=== PATIENT | female | born 1935 | race Caucasian/White ===

== ENCOUNTER 2017-06-04 19:36 | Emergency (ER) | payer BC, MEDICARE ==
[2017-06-04 20:01] VITALS: BP 112/66
--- NOTE | 2017-06-04 21:00 | UC ---
General HPI - HPI Summary HPI Summary: WAS IN NORMAL STATE OF HEALTH TODAY WHEN SHE SUDDENLY FELT WEAK AND SHAKEY. HAD SUBJECTIVE FEVER. NO SOB, CP, SLURRED SPEECH OR CONFUSION. ADMITS TO NOT DRINKING MUCH TODAY. HAS ONLY VOIDED ONCE. DENIES ANY DYSURIA. NO BACK PAIN. - History of Current Complaint Chief Complaint: UCGU Stated Complaint: DIZZY Time Seen by Provider: 06/04/17 20:49 Hx Obtained From: Patient, Family/Juice Weigher - SON AND DAUGHTER Onset/Duration: Sudden Onset, Lasting Hours, Still Present Timing: Constant Onset Severity: Moderate Current Severity: Moderate Associated Signs & Symptoms: Positive: Fever, Weakness. Negative: Back Pain, Confusion, Chest Pain, Decreased Responsiveness, Dysuria, Diaphoresis, Nausea, Palpitations, Syncope, SOB, Vomiting - Allergy/Home Medications Allergies/Adverse Reactions: Allergies Allergy/AdvReac Type Severity Reaction Status Date / Time Oxycodone Allergy Vomiting Verified 06/04/17 19:45 Penicillins [PCN] Allergy Hives Verified 06/04/17 19:45 PMH/Surg Hx/FS Hx/Imm Hx Previously Healthy: Yes - Surgical History Surgical History: Yes Surgery Procedure, Year, and Place: small intestine blockage - Family History Known Family History: Negative: Hypertension - Social History Alcohol Use: Occasionally Substance Use Type: None Smoking Status (MU): Former Smoker Type: Cigarettes Have You Smoked in the Last Year: No When Did the Patient Quit Smoking/Using Tobacco: 1 year ago Review of Systems Constitutional: Fever Respiratory: Negative Cardiovascular: Negative Gastrointestinal: Negative Neurological: Weakness All Other Systems Reviewed And Are Negative: Yes Physical Exam Triage Information Reviewed: Yes Appearance: Well-Appearing, No Pain Distress, Well-Nourished Vital Signs: Initial Vital Signs Temp 102.3 F 06/04/17 19:47 Pulse 103 06/04/17 19:47 Resp 20 06/04/17 19:47 BP 112/66 06/04/17 19:47 Pulse Ox 97 06/04/17 19:47 Vital Signs Reviewed: Yes Eyes: Positive: Conjunctiva Clear ENT: Positive: Hearing grossly normal Neck: Positive: Supple Respiratory Exam: Normal Cardiovascular Exam: Normal Abdomen Description: Positive: Nontender, Soft. Negative: CVA Tenderness (R), CVA Tenderness (L), Distended, Guarding Musculoskeletal: Positive: No Edema Neurological: Positive: Alert Psychological: Positive: Normal Response To Family, Age Appropriate Behavior Skin: Negative: rashes Diagnostics - Laboratory Diagnostic Studies Completed/Ordered: URINE DIP SP GR. 1.020, 1+ LEUKS, 2+ PROTEIN, TRACE BLOOD, 1+ KETONES, 1+ BILI Course/Dx - Differential Dx - Multi-Symptom Provider Diagnoses: UTI Discharge - Discharge Plan Condition: Stable Disposition: HOME Prescriptions: Sulfamethox/Trimethoprim DS* [Bactrim DS 800/160 TAB*] 1 tab PO BID #9 tab Patient Education Materials: Urinary Tract Infection in Women (ED) Referrals: Sasha De La Vega MD [Primary Care Provider] - If Needed Additional Instructions: URINE DIP POSITIVE FOR UTI. WE WILL SEND YOUR URINE FOR CULTURE TO CONFIRM AND CALL YOU IF WE NEED TO ALTER YOUR MANAGEMENT. STAY WELL HYDRATED. IF YOUR FEVER HAS NOT RESOLVED IN 2 DAYS FOLLOW-UP WITH YOUR PCP OR GO TO THE ER.
[2017-06-04] MEDS ORDERED: Sulfamethox/Trimethoprim DS 800/160* TAB PO ONE (21:01)
== END 2017-06-04 21:15 | disposition home or self-care (01) ==
LOC: UCEAST 19:36
DX: N39.0 Urinary tract infection, site not specified (principal); R50.9 Fever, unspecified; R53.1 Weakness; Z88.5 Allergy status to narcotic agent; Z88.0 Allergy status to penicillin; Z87.891 Personal history of nicotine dependence
CPT/HCPCS: 87086; 99212; A9270-GY; G0463

== ENCOUNTER 2017-08-01 16:12 | Emergency (ER) | payer MEDICARE ==
[2017-08-01 16:25] VITALS: BP 130/78
--- NOTE | 2017-08-01 17:45 | RAD ---
INDICATION: Left shoulder pain after a fall. Seizure x2. COMPARISON: None. TECHNIQUE: 2 views of the left shoulder and 3 views of the left humerus were obtained. FINDINGS: There is a displaced fracture at the left surgical neck of the humerus with the humeral shaft displaced at least one bone width medial relative to the humeral head. The remaining bones are otherwise intact and appropriately aligned. IMPRESSION: DISPLACED FRACTURE THROUGH THE LEFT HUMERAL SURGICAL NECK WITH THE HUMERAL SHAFT DISPLACED MEDIALLY AT LEAST ONE BONE WIDTH RELATIVE TO THE HUMERAL HEAD WHICH OTHERWISE APPEARS TO BE APPROPRIATELY ARTICULATED WITH THE BONY GLENOID LABRUM.
[2017-08-01] MEDS ORDERED: HYDROcodone/ACETAMIN 5-325 MG* 1 TAB PO ONE (17:56)
[2017-08-01] MEDS ORDERED: HYDROcodone/ACETAMIN 5-325 MG* 1 TAB ONE (18:00)
[2017-08-01] MEDS ORDERED: Tetan/Diph/Pertus SYR(Tdap)* 0.5 ML SYR(BOOSTRIX) use SYR IM ONE (18:07)
--- NOTE | 2017-08-01 18:25 | RAD ---
indication: Seizure x2 followed by head trauma. There is a hematoma above the left eye. COMPARISON: None A CT scan of the brain and and maxillofacial bones was performed without intravenous contrast enhancement. Contiguous axial sections were obtained from the lower cervical spine through the cranial vertex. BRAIN: The ventricles, cisterns and sulci exhibit diffuse symmetrical involutional changes. No significant focal abnormality or mass effect is seen. There is mild to moderate periventricular and subcortical white matter hypoattenuation most consistent with chronic microvascular disease. The mars-white differentiation is adequately maintained. There is no evidence for intracranial hemorrhage. No significant bony abnormality is present. The mastoid air cells are appropriately aerated. The visualized paranasal sinuses are clear. FACIAL BONES: Bones: There is no displaced fracture or dislocation. The orbital rim is intact. The zygomatic arch is intact. The pterygoid plates are intact Orbits: The globes are round. The optic nerves are symmetric. The extraocular musculature is normal. There is no post septal or intraconal inflammatory change. There is no retrobulbar hematoma. Paranasal Sinuses: The paranasal sinuses are clear. Partially visualized are multilevel degenerative changes of the cervical spine including obliteration of the intervertebral disc space at C3/C4 as well as marginal osteophyte formation. IMPRESSION: 1. Age-appropriate chronic findings include involutional changes and microvascular disease without acute intracranial abnormality. 2. No traumatic fractures of the calvarium or the facial bones.
--- NOTE | 2017-08-01 18:55 | ED ---
Jas Abdalla Angela, scribed for Wali Rowley MD on 08/01/17 at 1635 . Upper Extremity Pain - HPI Summary HPI Summary: This pt is a 82 y/o [facility]/o left shoulder pain s/p fall today. Pt reports she was going down the stairs with slippers when she slipped and fell down 4 steps. Pt states she had a head strike against the wall and fell on her left shoulder. Pt denies LOC or syncope. Her shoulder pain is aggravated by movement. Pt denies back pain, knee pain, abd pain, neck pain. Pt is unsure of her last tetanus shot. She is not on any anticoagulants. - History of Current Complaint Chief Complaint: EDShoulderClavicNneka Stated Complaint: LT SHOULDER INJURY Time Seen by Provider: 08/01/17 16:29 Hx Obtained From: Patient Mechanism Of Injury: Fall From Height Of: - 4 steps Onset/Duration: Started Hours Ago, Still Present Timing: Lasting Hours Pain Location: Shoulder - left shoulder Character: Aching Aggravating Factor(s): Movement Associated Signs & Symptoms: Positive: Swelling. Negative: Weakness, Numbness/ Tingling, Chest Pain, Back Pain, Neck Pain, Nausea, Vomiting - Allergies/Home Medications Allergies/Adverse Reactions: Allergies Allergy/AdvReac Type Severity Reaction Status Date / Time Oxycodone Allergy Vomiting Verified 06/04/17 19:45 Penicillins [PCN] Allergy Hives Verified 06/04/17 19:45 PMH/Surg Hx/FS Hx/Imm Hx Endocrine/Hematology History: Denies: Hx Diabetes, Hx Systemic Lupus Erythematosus Cardiovascular History: Denies: Hx Congestive Heart Failure, Hx Hypertension History: Denies: Hx Dialysis, Hx Renal Disease Musculoskeletal History: Denies: Hx Rheumatoid Arthritis - Cancer History Hx Chemotherapy: No - Surgical History Surgery Procedure, Year, and Place: small intestine blockage Infectious Disease History: No Infectious Disease History: Denies: Traveled Outside the [place] in Last 30 Days - Family History Known Family History: Negative: Hypertension - Social History Alcohol Use: Occasionally Substance Use Type: Reports: None Smoking Status (MU): Former Smoker Type: Cigarettes Have You Smoked in the Last Year: No Review of Systems Negative: Fever, Chills Negative: Chest Pain Negative: Shortness Of Breath Negative: Abdominal Pain Positive: Decreased ROM - left shoulder, Other - left shoulder pain Negative: Weakness, Paresthesia, Numbness All Other Systems Reviewed And Are Negative: Yes Physical Exam - Summary Physical Exam Summary: VITAL SIGNS: Reviewed. GENERAL: Patient is a well-developed and nourished female who is lying comfortable in the stretcher. Patient is not in any acute respiratory distress. HEAD AND FACE: No ecchymosis, skull depressions. No sinus tenderness. There is a small nasim on the left eyebrow. EYES: PERRLA, EOMI x 2, No injected conjunctiva, no nystagmus. EARS: Hearing grossly intact. Ear canals and tympanic membranes are within normal limits. MOUTH: Oropharynx within normal limits. NECK: Supple, trachea is midline, no adenopathy, no JVD, no carotid bruit, no c- spine tenderness, neck with full ROM. CHEST: Symmetric, no tenderness at palpation LUNGS: Clear to auscultation bilaterally. No wheezing or crackles. CVS: Regular rate and rhythm, S1 and S2 present, no murmurs or gallops appreciated. ABDOMEN: Soft, non-tender. No signs of distention. No rebound no guarding, and no masses palpated. Bowel sounds are normal. EXTREMITIES: No cyanosis or clubbing. The left shoulder is swollen, deformed. There is good microwave engineer on bilateral upper extremities. There is good pulses and capillary refill. NEURO: Alert and oriented x 3. No acute neurological deficits. Speech is normal and follows commands. SKIN: Dry and warm GCS: 15 Triage Information Reviewed: Yes Vital Signs On Initial Exam: Initial Vitals BP 130/78 08/01/17 16:18 Temperature: 97.5 Pulse Rate: 87 Respiratory rate: 20 O2 saturation: 97 Vital Signs Reviewed: Yes - Eve Coma Scale Coma Scale Total: 15 Diagnostics - Vital Signs Vital Signs Temp Pulse Resp BP Pulse Ox 08/01/17 16:20 97.5 F 81 20 130/78 94 08/01/17 16:18 130/78 - Laboratory Lab Statement: Any lab studies that have been ordered have been reviewed, and results considered in the medical decision making process. - Radiology Left humerus XR Xray Interpretation: Positive (See Comments) - IMPRESSION: Displaced fracture through the left humeral surgical neck with the humeral shaft displaced medially at least one bone width relative to the humeral head which otherwise appears to be appropriately articulated with the bony glenoid labrum.ED physician has reviewed this radiology report and agrees. Radiology Interpretation Completed By: Radiologist Left shoulder XR Xray Interpretation: Positive (See Comments) - IMPRESSION: Displaced fracture through the left humeral surgical neck with the humeral shaft displaced medially at least one bone width relative to the humeral head which otherwise appears to be appropriately articulated with the bony glenoid labrum.ED physician has reviewed this radiology report and agrees. Radiology Interpretation Completed By: Radiologist - CT Brain CT CT Interpretation: No Acute Changes - IMPRESSION: 1. Age-appropriate chronic findings include involutional changes and microvascular disease without acute intracranial abnormality. 2. No traumatic fractures of the calvarium or the facial bones. ED physician has reviewed this radiology report and agrees. CT Interpretation Completed By: Radiologist Maxillofacial CT CT Interpretation: No Acute Changes - IMPRESSION: 1. Age-appropriate chronic findings include involutional changes and microvascular disease without acute intracranial abnormality. 2. No traumatic fractures of the calvarium or the facial bones. ED physician has reviewed this radiology report and agrees. CT Interpretation Completed By: Radiologist - EKG 1728 Cardiac Rate: NL - 70 bpm EKG Rhythm: Sinus Rhythm ST Segment: Normal EKG Interpretation: Normal axis. No ST elevation. Re-Evaluation - Re-Evaluation First Eval Re-Evaluation Time: 17:43 Comment: I reviewed the XR results with the pt. Course/Dx - Course Assessment/Plan: This pt is a 82 y/o female [facility] [place]/o left shoulder pain s/p fall today. Pt reports she was going down the stairs with slippers when she slipped and fell down 4 steps. Pt states she had a head strike against the wall and fell on her left shoulder. Pt denies LOC or syncope. Her shoulder pain is aggravated by movement. Pt denies back pain, knee pain, abd pain, neck pain. Pt is unsure of her last tetanus shot. She is not on any anticoagulants. XR of the shoulder shows a displaced fracture of the left humeral surgical neck with the humeral shaft displaced. Head CT and face CT are both negative for fractures. In the ED course, the pt was given a norco for the pain. The pt initially declined pain medication but now she only wants norco. I discussed the test result and findings with Dr. Quiles. She actually saw the X-rays and requested for the pt to be discharged home and follow up with her in her office on Friday. Dr. Quiles requested a shoulder sling and pain management for the pt. I discussed the results, findings and plan to the pt and family members. At this point, the pt is hemodynamically stable and will follow up with Dr. Quiles on Friday in her office. - Diagnoses Differential Diagnosis/HQI/PQRI: Positive: Burn, Bursitis, Contusion, Fracture ( Closed), Hematoma, Strain, Sprain Provider Diagnoses: Fracture of neck of left humerus, Head contusion - Physician Notifications Discussed Care of Patient With: Moon Quiles Time Discussed With Above Provider: 17:19 Instructed by Provider To: Other - I discussed the pt's case with Dr. Quiles. Pt recommends the pt to be discharged and Dr. Quiles will see the pt in her office on Friday. Discharge - Discharge Plan Condition: Stable Disposition: HOME Prescriptions: HYDROcodone/ACETAMIN 5-325 MG* [Harriet 5-325 TAB*] 1 tab PO Q4H PRN #12 tab MDD 4 PRN Reason: Pain Patient Education Materials: Contusion in Adults (ED), Proximal Humerus Fracture (ED) Referrals: Sasha De La Vega MD [Primary Care Provider] - Moon Quiles MD [Medical Doctor] - 3 Days Additional Instructions: Please follow up with Dr. Quiles from orthopedics in her office on Friday, . The documentation as recorded by the Jas negrete Angela accurately reflects the service I personally performed and the decisions made by , Wali Rowley MD.
== END 2017-08-01 19:10 | disposition home or self-care (01) ==
LOC: ED 16:12
DX: S00.93XA Contusion of unspecified part of head, initial encounter (principal); W10.9XXA Fall (on) (from) unspecified stairs and steps, initial encounter; Y93.9 Activity, unspecified; Y92.9 Unspecified place or not applicable; Z23 Encounter for immunization; Z88.5 Allergy status to narcotic agent; Z88.0 Allergy status to penicillin; Z87.891 Personal history of nicotine dependence
CPT/HCPCS: 70450; 70486; 90471; 90715; 93005; 99284

== ENCOUNTER 2017-08-15 10:23 | Inpatient (IN) | payer MEDICARE ==
--- NOTE | 2017-08-06 17:06 | HP ---
PREOPERATIVE HISTORY AND PHYSICAL: DATE OF ADMISSION/SURGERY: 08/08/17 DATE OF OFFICE VISIT: 08/05/17 ATTENDING SURGEON: Dr. Moon Quiles* (dictated by ROCKY Valenzuela). PROCEDURE: Left proximal humerus open reduction internal fixation. CHIEF COMPLAINT: Left proximal humerus fracture. HISTORY OF PRESENT ILLNESS: Ann Marie is an 82-year-old female, who presents to clinic for left proximal humerus fracture, she is right-hand dominant. The patient states on 08/01/17, she fell down 4 steps and hit her left shoulder off the wall. She had immediate pain and was taken to the ER, and x-rays were performed and revealed a left proximal humerus fracture. The patient states she continues to have a 5/10 aching pain that is worse with movement. She is taking Aleve as needed for the pain. She lives by herself and usually drives. She is a former smoker, who quit about 3 years ago. She denies numbness, tingling, fevers, chills, and is doing well otherwise. PAST MEDICAL HISTORY: No current problems. PAST SURGICAL HISTORY: Bowel obstruction and left hip replacement. FAMILY HISTORY: Positive for diabetes, heart disease, and cancer. SOCIAL HISTORY: She lives alone. She is retired. She is a former smoker. She denies alcohol use. She exercises regularly. She is right-hand dominant. REVIEW OF SYSTEMS: A 14-point review of systems was reviewed with the patient. Positive for current complaint, otherwise negative. Denies chest pain, shortness of breath. Denies fever or chills. Denies history of bleeding disorders. Denies history of DVT or PE. PHYSICAL EXAMINATION GENERAL: An 82-year-old, well-developed, well-nourished female, in no acute distress. Alert and oriented x3. Appropriate mood and affect. VITAL SIGNS: Height 62, weight 112. Pulse 81, blood pressure 108/62, temperature 98.2. BMI 20.5. HEENT: Normocephalic, atraumatic. PERRLA. Throat clear. NECK: Supple. PULMONARY: Lungs are clear to auscultation bilaterally. No wheezing, rhonchi, or rales. CARDIO: Regular rate and rhythm. S1 and S2. No murmurs, gallops, or rubs. No edema. ABDOMEN: Positive bowel sounds. Soft, nontender. MUSCULOSKELETAL: Left upper extremity: There is significant bruising and swelling over the left shoulder and upper arm. Tenderness to palpation over the proximal humerus. Full range of motion of the elbow, wrist, and hand. She does have clubbing of her fingers; however, she has good cap refill. +2 radial pulse. Sensation is intact to light touch distally. Right upper extremity: Skin is intact, no warmth or erythema. Nontender to palpation. Full range of motion, pain free. +2 radial pulse. Sensation is intact to light touch distally. NEURO: Alert and oriented x3. Cranial nerves grossly intact. Sensation is intact to light touch. DIAGNOSTIC STUDIES: Multiple view x-rays of the left shoulder reveal a comminuted 100% displaced proximal humerus fracture and osteopenia. IMPRESSION: Left comminuted displaced proximal humerus fracture. PLAN: The patient is scheduled to undergo a left proximal humerus open reduction internal fixation on 08/08/17. Since the patient lives alone and would like full function of her left arm, surgical versus non-operative treatments were discussed with the patient and the risks of surgery to include injury to blood vessels, nerves, surrounding structures; bleeding; infection; osteonecrosis; risk of anesthesia; stiffness; persistent pain were discussed with the patient. The patient would like to undergo surgery. She was sent for a preop chest x-ray and labs and Dr. De La Vega will be contacted in regards to preoperative clearance. The patient will follow up with Dr. Quiles 10 to 14 days postop for followup and suture removal. Percocet will be used for postop pain. ADDENDUM: The patient's preoperative chest x-ray revealed a 3-cm mass that is new, not on prior imaging. Therefore, Dr. De La Vega, will be contacted in regards to follow up of the mass and clearance for the shoulder. If the patient would like to continue with the open reduction internal fixation and the patient is medically optimized for surgery, then Dr. Quiles will perform the left proximal humerus open reduction internal fixation. ROCKY VALENZUELA [id number]/[facility] #: [id number] [facility] HOSPITALMeghan
[~2017-08-15 10:23] MED LIST: Acetaminophen TAB* 325 MG PO ONE; Buffered Lidocaine 0.9% SYRIN* 5 ML/SYR SYRINGE INTRADERM ONE; Dexamethasone IV* 4 MG/ML 1 ML (4 MG) IV SLOW PU ONE; Famotidine IV* 10 MG/ML 2 ML (20 mg) IV ONE; Metoclopramide IV* 5 MG/ML 2 ML VIAL IV SLOW PU ONE; Metoclopramide TAB* 10 MG PO ONE
[2017-08-15] MEDS ORDERED: Famotidine IV* 10 MG/ML 2 ML (20 mg) ONE (11:06)
[2017-08-15] MEDS ORDERED: Buffered Lidocaine 0.9% SYRIN* 5 ML/SYR SYRINGE ONE (11:07)
[2017-08-15] MEDS ORDERED: Clindamycin 900 MG IVPREMIX(* 900 MG/50 ML SDV IV ONE (11:07)
[2017-08-15] MEDS ORDERED: Metoclopramide TAB* 10 MG ONE (11:07)
[2017-08-15] MEDS ORDERED: Cisatracurium* 2 MG/ML MDV 5 ML ONE (11:09)
[2017-08-15] MEDS ORDERED: Propofol* 10 MG/ML 20 ML BTL IV PUSH ONE (11:09)
[2017-08-15] MEDS ORDERED: Ondansetron INJ* 2 MG/ML VIAL ONE (11:09)
[2017-08-15] MEDS ORDERED: Phenylephrine INJ* 10 MG/ML 1 ML VIAL (10 MG) ONE (11:09)
[2017-08-15] MEDS ORDERED: fentaNYL* 50 MCG/ML 2 ML VIAL (100 MCG VIAL) ONE (11:09)
[2017-08-15] MEDS ORDERED: Ketorolac INJ* 30 MG/ML 1 ML VIAL ONE (11:09)
[2017-08-15] MEDS ORDERED: Lidocaine 2% PF * 5 ML VIAL ONE (11:09)
[2017-08-15] MEDS ORDERED: KETAMINE HCL* 50 MG/ML 10 ML VIAL ONE (11:09)
[2017-08-15] MEDS ORDERED: ROPIVACAINE 5 MG/ML 30 ML BTL (0.5%) ONE (11:09)
[2017-08-15] MEDS ORDERED: Dexamethasone IV* 4 MG/ML 1 ML (4 MG) ONE (11:09)
[2017-08-15] MEDS ORDERED: Midazolam* 1 MG/ML 5 ML VIAL (5 MG) ONE (11:10)
[2017-08-15] MEDS ORDERED: EPHEDrine (Pressors)* 50 MG/ML VIAL ONE (13:00)
[2017-08-15] MEDS ORDERED: Ondansetron INJ* 2 MG/ML VIAL IV PRN ×2 (14:22→15:48)
[2017-08-15] MEDS ORDERED: fentaNYL* 50 MCG/ML 2 ML VIAL (100 MCG VIAL) IV PRN (14:22)
[2017-08-15] MEDS ORDERED: HYDROmorphone INJ* 1 MG/ML CARPUJECT SYRINGE IV PRN (14:22)
[2017-08-15] MEDS ORDERED: Levalbuterol 0.63MG/3ML NEB* UNIT OF USE INH PRN (14:22)
[2017-08-15] MEDS ORDERED: Acetaminophen TAB* 325 MG PO PRN (15:48)
[2017-08-15] MEDS ORDERED: Morphine INJ* 2 MG/ML 1 ML SYRINGE (TWO MG - NEW SYRINGE VERSION) IV PRN (15:48)
[2017-08-15] MEDS ORDERED: HYDROcodone/ACETAMIN 5-325 MG* 1 TAB PO PRN (16:03)
--- NOTE | 2017-08-15 16:24 | RAD ---
Indication: Reversed LEFT glenohumeral joint replacement immediate postop assessment. Comparison: August 05, 2017 Technique: Internal and external rotation AP and crosstable axillary views LEFT shoulder Report: Normally located reversed LEFT glenohumeral prosthesis in place. No acute periprosthetic fracture evident. Greater tuberosity fracture fragment is unchanged from the prior exam. Surgical drain in place. Soft tissue edema and subcutaneous emphysema. IMPRESSION: Unremarkable immediate postop appearance following reversed glenohumeral joint replacement.
[2017-08-15] MEDS: Clindamycin 600 MG IVPREMIX(* 600 MG/50 ML SDV IV SCH (20:06)
--- NOTE | 2017-08-15 21:41 | CONS ---
CONSULTATION REPORT: DATE OF CONSULT: 08/15/17 PHYSICIAN REQUESTING CONSULTATION: Dr. Quiles, Orthopedic Surgery. ATTENDING PHYSICIAN: Madi Tong MD (report dictated by Sasha Velázquez NP) REASON FOR CONSULTATION: Preoperative x-ray showing lung mass. HISTORY OF PRESENT ILLNESS: This patient is an 82-year-old female who underwent an elective total shoulder replacement on 08/15/[address] Quiles. On 08/01/17, the patient had a fall down 4 steps and hit her left shoulder on the wall. She had pain, was taken to the ER and x-rays revealed a left proximal humerus fracture. She continued to have pain, was seen in Dr. Quiles's office. Recommendations were initially for open reduction and internal fixation , yet Dr. Qulies discovered that the break was worse than she had thought and the patient underwent a reverse left glenohumeral joint replacement. Preoperatively, the patient had a chest x-ray, which revealed a 3.6 x 2.8 cm nodular density suspicious for a pulmonary mass. The patient's primary care provider was contacted, yet the patient has not been able to see her primary prior to having the left hip surgery today. Immediately postoperatively, the patient denies any shortness of breath. Hospitalists were asked to assist with co-management because of the findings of the new lung mass. PAST MEDICAL HISTORY: None. PAST SURGICAL HISTORY: Bowel obstruction and left hip replacement. MEDICATIONS: Multivitamin 1 tablet oral daily. ALLERGIES: OXYCODONE and PENICILLIN. FAMILY HISTORY: The patient has family history of diabetes, heart disease and cancer. SOCIAL HISTORY: The patient lives alone. Her recently from prostate cancer. She smoked for 30 years half a pack to a pack a day. Denies any alcohol use. REVIEW OF SYSTEMS: I performed a 14-point review of systems; all the pertinent positives and negatives are mentioned in the history of present illness. Remaining review of systems was negative. PHYSICAL EXAM: Vital Signs: Temperature 97.5, heart rate 95, respiratory rate 18, blood pressure 107/66, and oxygen saturation 100%. Appearance: The patient is alert, lying in bed, appeared to be in no distress. Head, Eyes, Ears , Nose and Throat: Normocephalic/atraumatic. Pupils were equal and reactive to light. Extraocular movements were intact. Neck: Supple. There was no lymphadenopathy noted. Cardiac: S1 and S2 were crisp. There were no murmurs, rubs, or gallops heard. Lungs: Clear to auscultation. No accessory muscle use. Abdomen: Soft, nontender and nondistended. Bowel sounds x4. Musculoskeletal: The patient's left upper extremity is stabilized in the splint. She has good capillary refill and distal circulation, sensation and movement is intact. All other extremities have equal strength. Neuro: The patient is alert and oriented x3. DIAGNOSTIC STUDIES: The patient had a chest x-ray from 08/05/17 that shows there is a nodule which projects lateral to the left hilum suspicious for pulmonary mass. Recommended a CT of the chest with contrast for further evaluation. Enlargement of the left hilum suspicious for left hilar lymphadenopathy. Findings consistent with COPD. Shoulder x-ray from today, unremarkable immediate postop appearance following reverse glenohumeral joint replacement. IMPRESSION: This is an 82-year-old female with no significant past medical history who had a fall resulting in a complex humeral fracture and is now status post reverse left glenohumeral joint replacement who had findings on preoperative chest x-ray suspicious for a pulmonary mass. ASSESSMENT AND PLAN: 1. Postop day 0, left total shoulder replacement. Management per Orthopedic Surgery. The patient has pain medications and currently has a drain. She has a CBC ordered for tomorrow morning. 2. Lung mass. The patient will have a CT scan of her chest, abdomen, and pelvis tomorrow to further characterize the mass. I discussed with the family that likely after discharge once she has the scan that her primary care provider will arrange for biopsy either with Pulmonology or Interventional Radiology depending on the location of the mass. 3. DVT prophylaxis per Orthopedic Surgery. 4. Code status. The patient is full code. TIME SPENT: Time for this consultation was 50 minutes, and 25 minutes were spent discussing past medical history and events leading up to her arrival in the emergency room. Thank you for this consultation. We will follow along with you. Reviewed by SASHA VELÁZQUEZ NP 08/23/2017 1800 [id number]/[facility] #: [id number] [facility]
[2017-08-16] MEDS: Clindamycin 600 MG IVPREMIX(* 600 MG/50 ML SDV IV SCH ×2 (04:59→12:32)
[2017-08-16] MEDS: HYDROcodone/ACETAMIN 5-325 MG* 1 TAB PO PRN ×2 (05:03→08:10)
[2017-08-16] MEDS: Vitamin THERAPEUTIC TAB PO SCH (08:10)
[2017-08-16] MEDS ORDERED: oxyCODONE TAB* 5 MG TAB PO PRN ×2 (09:06→09:08)
--- NOTE | 2017-08-16 09:21 | RAD ---
HISTORY: Evaluate lung mass COMPARISONS: Chest x-ray dated August 05, 2017 TECHNIQUE: Multiple contiguous axial CT scans were obtained of the chest, abdomen, and pelvis, without intravenous contrast enhancement. Coronal and sagittal multiplanar reformations are submitted for review.. Oral contrast was not administered. FINDINGS: The study is limited by the lack of intravenous contrast. This limits evaluation of the solid organs and vasculature. CHEST NECK AND THYROID: The lower neck and thyroid are unremarkable. CHEST WALL: There is post surgical change to the left shoulder girdle. HEART AND PERICARDIUM: The heart is unremarkable. AORTA AND PULMONARY VASCULATURE: There is calcification of the thoracic aorta. The pulmonary vasculature is unremarkable. MEDIASTINUM: There is no mediastinal lymphadenopathy by size criteria. CLARA: Evaluation of the clara is limited by the lack of intravenous contrast. There is no obvious hilar lymphadenopathy by size criteria. AIRWAY AND ESOPHAGUS: The airway is unremarkable, without endobronchial filling defect. The esophagus is grossly normal. LUNG PARENCHYMA: There is diffuse centrilobular and panacinar emphysematous change. There is a 3.1 cm perihilar mass in the left upper lobe. PLEURA: No pleural abnormalities are noted. BONES AND SOFT TISSUES: The patient is status post left shoulder arthroplasty. ABDOMEN/PELVIS: LIVER: The liver is normal in shape, size, contour, and attenuation. BILE DUCTS: There is no intrahepatic or extrahepatic biliary dilatation. GALLBLADDER: The gallbladder is normal, without pericholecystic inflammatory change. PANCREAS: The pancreas is normal, without mass or ductal dilatation. SPLEEN: Normal in size and appearance. UPPER GI TRACT: Evaluation of the gastrointestinal tract is limited by incomplete gastric distention. The upper GI tract is unremarkable. SMALL BOWEL \T\ MESENTERY: The small bowel is normal in contour, course, and caliber. There is no obstruction or dilatation. COLON: There are multiple diverticula of the distal colon. There is no pericolonic inflammatory change. ADRENALS: Normal bilaterally. KIDNEYS: The kidneys are normal in shape, size, contour, and axis. There is no hydronephrosis or nephrolithiasis. BLADDER: The bladder is smooth in contour. PELVIC ORGANS: Evaluation limited by streak artifact from a left hip arthroplasty. AORTA: There is calcific atherosclerotic disease of the abdominal aorta and its branches, without aneurysmal dilatation IVC: Unremarkable LYMPH NODES: There is no lymphadenopathy by size criteria. ABDOMINAL WALL: There is no evidence for abdominal wall hernia. BONES AND SOFT TISSUES: Degenerative changes are noted. The patient is status post left hip arthroplasty. There is diffuse osteopenia. There are age-indeterminate compression deformities of L4 and L1 without osseous retropulsion. OTHER: None IMPRESSION: 1. 3.1 CM MASS OF THE LEFT PERIHILAR UPPER LOBE. RECOMMEND CONSIDERATION OF CORRELATION WITH PET/CT AND/OR TISSUE SAMPLING. 2. EMPHYSEMA. 3. ATHEROSCLEROSIS. 4. DIVERTICULOSIS.
--- NOTE | 2017-08-16 10:14 | PN ---
Progress Note - Progress Note Date of Service: 08/16/17 SOAP: Subjective: [Pt reports pain L shoulder. Currently using [place] for pain. C/O of nausea and vomiting - she thinks it's related to narcotics. Denies dizziness, CP.] Objective: [A and O x 3, NAD Sitting at side of bed eating breakfast, appears comfortable L shoulder dressing C/D/I, cryounit and sling in place. Drain with moderate amout SS drainage - drain pulled this morning. Pt tolerated well, but did vomit. No swelling in hand, good movement of fingers, distal NV function intact - good hand grasp, radial pulse present. H/H not back yet Vital Signs: Temp Pulse Resp BP Pulse Ox 98.1 F 79 16 90/47 94 08/16/17 07:29 08/16/17 07:29 08/16/17 08:10 08/16/17 07:29 08/16/17 07:29 ] Assessment: [s/p L Reverse TSA POD #1] Plan: [Pain management - going to try tramadol, ibuprofen, tylenol. Will try percocet if needed. Zofran for nausea PT/OT - NWB L UE Lovenox for DVT prophylaxis while in hospital Plan for D/C - likely tomorrow Check H/H when results are back. ]
[2017-08-16] MEDS: Ibuprofen TAB* 600 MG PO PRN ×2 (10:47→18:43)
[2017-08-16] MEDS: Enoxaparin(*) 30 MG/0.3 ML SYR SUBCUT SCH (10:48)
[2017-08-16] MEDS: traMADol TAB* 50 MG PO PRN ×2 (12:35→20:52)
[2017-08-16 12:59] LABS: Hematocrit 23 % (35-47); Hemoglobin 7.7 g/dl (12.0-16.0); Mean Corpuscular HGB Conc 33 g/dl (31-36); Mean Corpuscular Hemoglobin 31 pg (27-31); Mean Corpuscular Volume 92 fL (80-97); Mean Platelet Volume 8 um3 (7.4-10.4); Red Blood Count 2.51 10^6/ul (4.0-5.4); Red Cell Distribution Width 15 % (10.5-15); White Blood Count 8.5 10^3/ul (3.5-10.8)
[2017-08-16 13:00] LABS: Comments Flag Yes
--- NOTE | 2017-08-16 17:10 | PN ---
Subjective Date of Service: 08/16/17 Interval History: Patient seen this AM and again with 3 of her children this afternoon. She feels well. Pain controlled. Denies CP/SOB, no nausea/vomiting Discussed left lobe mass and CT findings from today as well as plan for outpatient biopsy Objective Active Medications: Acetaminophen (Tylenol Tab*) 650 mg PO Q6H PRN PRN Reason: FEVER/PAIN Enoxaparin Sodium (Lovenox(*)) 30 mg SUBCUT Q24H [facility] Last Admin: 08/16/17 10:48 Dose: 30 mg Lactated Ringer's (Lactated Ringers 1000 Ml Bag*) 1,000 mls @ 125 mls/hr IV PER RATE [facility] Last Admin: 08/16/17 08:09 Dose: 125 mls/hr Ibuprofen (Motrin Tab*) 600 mg PO Q8H PRN PRN Reason: PAIN Last Admin: 08/16/17 10:47 Dose: 600 mg Morphine Sulfate (Morphine Inj (Syringe)*) 2 mg IV Q2H PRN PRN Reason: PAIN Multivitamins (Theragran Tab*) 1 tab PO QAM [facility] Last Admin: 08/16/17 08:10 Dose: 1 tab Ondansetron HCl (Zofran Inj*) 4 mg IV Q6H PRN PRN Reason: NAUSEA Last Admin: 08/16/17 11:36 Dose: 4 mg Oxycodone HCl (Roxycodone Tab*) 5 mg PO Q4H PRN PRN Reason: PAIN - MILD TO MODERATE Oxycodone HCl (Roxycodone Tab*) 10 mg PO Q4H PRN PRN Reason: PAIN - MODERATE TO SEVERE Tramadol HCl (Ultram*) 50 mg PO Q6H PRN PRN Reason: PAIN Last Admin: 08/16/17 12:35 Dose: 50 mg Vital Signs 08/15/17 08/15/17 08/15/17 17:16 18:08 18:10 Temperature 98.9 F 97.6 F 97.6 F Pulse Rate 92 87 87 Respiratory 18 16 16 Rate Blood Pressure 94/54 89/45 89/45 (mmHg) O2 Sat by Pulse 92 94 94 Oximetry 08/15/17 08/15/17 08/15/17 18:15 19:26 20:00 Temperature 97.5 F Pulse Rate 80 Respiratory 22 17 Rate Blood Pressure 85/42 102/61 (mmHg) O2 Sat by Pulse 92 Oximetry 08/15/17 08/16/17 08/16/17 21:04 00:00 00:21 Temperature 97.7 F 97.6 F Pulse Rate 72 64 Respiratory 20 16 Rate Blood Pressure 97/57 92/52 (mmHg) O2 Sat by Pulse 97 93 93 Oximetry 08/16/17 08/16/17 08/16/17 03:24 05:03 07:03 Temperature 98.8 F Pulse Rate 73 Respiratory 16 17 16 Rate Blood Pressure 92/44 (mmHg) O2 Sat by Pulse 94 Oximetry 08/16/17 08/16/17 08/16/17 07:29 08:10 08:15 Temperature 98.1 F Pulse Rate 79 Respiratory 18 16 16 Rate Blood Pressure 90/47 (mmHg) O2 Sat by Pulse 94 Oximetry 08/16/17 08/16/17 08/16/17 10:10 11:54 12:35 Temperature 97.4 F Pulse Rate 81 Respiratory 16 16 16 Rate Blood Pressure 93/56 (mmHg) O2 Sat by Pulse 94 Oximetry 08/16/17 08/16/17 16:00 16:24 Temperature 98.4 F Pulse Rate 76 Respiratory 20 Rate Blood Pressure 87/55 (mmHg) O2 Sat by Pulse 96 96 Oximetry Oxygen Devices in Use Now: None Appearance: NAD, sitting in chair, interactive Eyes: No Scleral Icterus, PERRLA Ears/Nose/Mouth/Throat: NL Teeth, Lips, Gums, Clear Oropharnyx, Mucous Membranes Moist Neck: NL Appearance and Movements; NL JVP, Trachea Midline Respiratory: Symmetrical Chest Expansion and Respiratory Effort, Clear to Auscultation Cardiovascular: RRR Abdominal: NL Sounds; No Tenderness; No Distention, No Hepatosplenomegaly Extremities: - - left shoulder in brace, nv intact Neurological: Alert and Oriented x 3 Result Diagrams: 08/16/17 12:26 Assess/Plan/Problems-Billing Assessment: 82 F with complex humeral fxr s/p reverse glenohumeral joint replacement found on preop imaging to 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 - Patient Problems (1) Tumor of lung Comment: left lung no mets on CT abd/pelvis Dr. Cortez recommends a CT guided biopsy This can be arranged as an outpatient I have emailed her PCP to inform If patient remains in the hospital and is not ready for discharge it may be able to be performed prior to her disposition (2) Anemia Comment: recheck tomorrow (3) Humeral fracture Comment: POD 1 Left reverse TSA care per primary team Status and Disposition: Will sign off please call with additional questions [phone]
[2017-08-17 07:10] LABS: Comments Flag Yes; Hematocrit 27 % (35-47); Hemoglobin 8.8 g/dl (12.0-16.0)
[2017-08-17 08:56] VITALS: BP 108/56
[2017-08-17] MEDS: Ibuprofen TAB* 600 MG PO PRN (09:05)
[2017-08-17] MEDS: Enoxaparin(*) 30 MG/0.3 ML SYR SUBCUT SCH (09:06)
[2017-08-17] MEDS: Vitamin THERAPEUTIC TAB PO SCH (09:06)
--- NOTE | 2017-08-17 09:08 | PN ---
Progress Note - Progress Note Date of Service: 08/17/17 SOAP: Subjective: [Pt reports minimal pain L shoulder while at rest. Tramadol and ibuprofen working fairly well. Denies CP, SOB, dizziness, nausea. Feels ready to go home.] Objective: [Alert, mildly cofused. NAD. L shoulder dressing C/D/I. Cryounit and sling in place. No swelling in hand. Good motion in fingers. NV function intact. Vital Signs: Temp Pulse Resp BP Pulse Ox 99.3 F 78 16 108/56 90 08/17/17 07:19 08/17/17 07:19 08/17/17 07:19 08/17/17 07:19 08/17/17 07:19 Laboratory Results - last 24 hr 08/16/17 08/16/17 08/17/17 12:26 12:26 06:56 WBC 8.5 RBC 2.51 L Hgb 7.7 L 8.8 L Hct 23 L 27 L MCV 92 MCH 31 MCHC 33 RDW 15 Plt Count 203 MPV 8 Neut % (Auto) 77.3 Lymph % (Auto) 14.0 L Bailey % (Auto) 7.8 Eos % (Auto) 0.5 Baso % (Auto) 0.4 Absolute Neuts (auto) 6.5 Absolute Lymphs (auto) 1.2 Absolute Monos (auto) 0.7 Absolute Eos (auto) 0 Absolute Basos (auto) 0 Absolute Nucleated RBC 0 Nucleated RBC % 0 Blood Type O Positive Antibody Screen Negative Crossmatch See Detail ] Assessment: [s/p L reverse TSA POD #2] Plan: [D/C pt home with services Dressing change tomorrow by VNS (leave steri strips on) Tramadol, ibuprofen, tylenol for pain. ROM of L elbow and wrist. NWB L UE F/U with Dr. Quiles in office in 10-14 days.]
--- NOTE | 2017-08-19 03:39 | DS ---
DISCHARGE SUMMARY: DATE OF ADMISSION: 08/15/17 DATE OF DISCHARGE: 08/17/17 ADMITTING PHYSICIAN: Moon Quiles MD * (DICTATED BY ROCKY RM) ADMITTING DIAGNOSES: Left proximal humerus fracture, newly discovered pulmonary mass. PROCEDURE: Left reverse total shoulder arthroplasty. CONSULTANTS: Physical Therapy, Occupational Therapy, and Medicine. HISTORY OF PRESENT ILLNESS: This is an 82-year-old female who suffered fracture of the left proximal humerus on 08/01/17 when she fell down 4 steps and hit her left shoulder off the wall. X-rays showed a left proximal humerus fracture. Plans initially were for an open reduction and internal fixation, yet Dr. Quiles discovered that the fracture was worse than she had initially thought and it was decided that she would be better served with a left reverse total shoulder arthroplasty, which she underwent on 08/15/[address] Quiles. Preoperatively, the patient had a chest x-ray, which revealed a nodular density suspicious for a pulmonary mass. The patient's primary care provider has been contacted and arrangements will be made for the patient to see her primary care doctor. Additionally, a CT scan of her chest, abdomen, and pelvis was ordered while she was in the hospital postoperatively. HOSPITAL COURSE: Ms. Cuba was admitted to [facility] on 08/15/17. She underwent an uncomplicated left reverse total shoulder arthroplasty. Postoperatively, she recovered on the short-stay surgical unit. Her Tena catheter was removed in the PACU postoperatively and the patient was able to urinate on her own. On postoperatively day 1, a Hemovac drain that had been placed during surgery was removed without incident. The patient advanced to a regular diet without difficulty. She did have some issues with nausea and vomiting that appeared to be related to hydrocodone and oxycodone, which were being used to control her postoperative pain. She was then switched to tramadol and also was using ibuprofen and Tylenol to manage her pain, which were quite effective and she did not have any further nausea or vomiting on these medications. She did have some low blood pressure readings postoperative day #1 and also was found to have a low H and H of 8.8/27. Postoperative day 1 , she was transfused 1 unit and this did increase her H and H to a more acceptable level. She advanced appropriately with physical therapy and occupational therapy. She remained nonweightbearing on the left lower extremity. Her DVT prophylaxis was Lovenox 30 mg daily. She was also followed by Medicine and had a CT scan of her chest, abdomen, and pelvis to further evaluate the suspicious pulmonary mass. By postoperative day #2, she was orthopedically and medically stable for discharge home with services. PHYSICAL EXAMINATION: General: On examination, the patient is noted to calm and cooperative, no acute distress. She is alert and oriented x3. Vital Signs : On day of discharge, temperature 99.3 degrees Fahrenheit, pulse rate 78, respiratory rate 16, O2 sat 90% on room air, blood pressure 108/56. Examination of the left upper extremity demonstrates a dressing overlying the left shoulder, which is clean, dry, and intact. Her arm is maintained in a sling. She has no swelling in her hand. Good motion in her wrist and hand. Neurovascularly, function is intact. RADIOGRAPHS: Postoperative radiographs of the left shoulder demonstrate a reverse total shoulder arthroplasty with satisfactory prosthesis placement and no acute bony abnormalities. DISCHARGE MEDICATIONS: 1. Multivitamin 1 tablet oral daily. 2. Tramadol 50 mg 1 tab q.4 to 6 hours p.r.n. pain. 3. Colace p.r.n. constipation. CONDITION ON DISCHARGE: Stable. DISCHARGE INSTRUCTIONS: Ms. Cuba is an 82-year-old female postoperative day 2 , status post left reverse total shoulder arthroplasty, which was uncomplicated. She is orthopedically and medically stable to be discharged home with services. She has stable vital signs and labs. She will use tramadol and then [id number] ibuprofen and Tylenol as needed p.r.n. pain. She will remain nonweightbearing on her left upper extremity and had physical therapy in her home twice a day. Visiting nurse services will change her dressing on 08/19/17, but were instructed to leave Steri-Strips in place. She will work on range of motion of her elbow, wrist and fingers. She will follow up in the office with Dr. Quiles in 10 to 14 days for incision check. She was instructed to call Dr. Quiles or go immediately to the emergency room should she develop any new fevers, chills, or incision pain, redness or drainage. She was instructed to go immediately to the ER should she develop chest pain or shortness of breath. The patient will also maintain her left upper extremity in a sling when she is not participating in physical therapy. ROCKY RM [id number]/[facility] #: [id number] [facility]IATRIC CENTERMeghan
--- NOTE | 2017-08-26 16:31 | OP ---
CC: PCP OPERATIVE REPORT: DATE OF OPERATION: 08/15/17 DATE OF : 35 SURGEON: Moon Quiles MD ASSISTANTS: 1. ROCKY Jenkins 2. Michelle Michelle. ANESTHESIOLOGIST: Dr. Lucio. PRE-OP DIAGNOSIS: Left proximal humerus fracture 3-part POST-OP DIAGNOSIS: Left proximal humerus fracture 4-part fracture OPERATIVE PROCEDURE: 1. Left shoulder reverse arthroplasty for fracture. 2. Open biceps tenodesis. INDICATIONS: Ann Marie Cuba is an 82-year-old right-hand dominant female, who fell and sustained a left proximal humerus fracture that was deemed to be a 3- part fracture. She was also recently diagnosed to have a lung mass. After extensive discussion of the risks and benefits of operative versus nonoperative treatment, an ORIF versus replacement, she elected to proceed with reverse shoulder arthroplasty. Risks and benefits were discussed at length and included , but are not limited to, bleeding; infection; damage to nerves, vessels, surrounding structures; wound nonhealing; persistent pain; need for further surgery; scarring; stiffness; incomplete relief of symptoms; risk of anesthesia. IMPLANTS: Gee 16-mm reverse stem, 36-mm eccentric glenosphere, 36 mm +3 liner , appropriate length of screws and small reduced glenoid; these were all Gee. ESTIMATED BLOOD LOSS: 300 cc. COMPLICATIONS: None. OUTPUT: One drain to be removed postop day 1. DESCRIPTION OF PROCEDURE: The patient was greeted in the preoperative area by the attending surgeon. Correct extremity was marked and consent was confirmed. The patient was brought back to the operating suite, where she was placed in the supine position on the operating room table. She then underwent general anesthesia with interscalene nerve block after which the left arm was prepped and draped in the usual sterile fashion beginning with chlorhexidine soap, scrub , and alcohol wipe, and a final prep with ChloraPrep. After appropriate surgical pause indicating site, side, procedure, and administration of antibiotics, the deltopectoral incision was made with a 15 blade and soft tissues were carefully dissected to expose the cephalic vein, which was then retracted along the deltoid laterally. The fracture was evident. At this point, there was mild amount of callus and scar tissue that was healing. Care was taken to identify the conjoint tendon and retractors were placed in deltopectoral interval. The clavipectoral fascia was identified and carefully incised. The bursa that was in front of the subscap was also identified. The pec tendon was then identified at the insertion in the humerus. The first 1.5 cm was then released with electrocautery. The biceps was then tenodesed using heavy nonabsorbable suture. The biceps was then tenotomized proximal to that and this was used as a landmark to find the greater and lesser tuberosities. The biceps was carefully dissected proximally. At this point, the shaft of the fracture was identified. The greater tuberosity appeared to be displaced with intact rotator cuff. The lesser tuberosity also appeared to be detached from the shaft as well as the humeral head. An osteotome was used to further loosen this up as it was not an obvious fracture and this allowed for mobilization of the pieces of bone. The greater tuberosity was then tagged using #5 Ethibond. The lesser tuberosity was also tagged to the tendon-bone interface, not to the bone itself. These were then retracted and the humeral head was identified and was removed without any further osteotomy, which possibly it was a 4-part fracture. This was then kept in the back table and used for sizing purposes. At this point, attention was directed to the glenoid. With the appropriate retractors in place and care to remove the shaft out of the place, the glenoid was prepared in the usual fashion. The electrocautery device was used to remove the excess labrum anteriorly as well as superior labrum posteriorly. The subscap was carefully mobilized as well. The inferior portion of the glenoid was prepared with tension on the inferior sutures and with the needle- tip Bovie. The glenoid space was then denuded of some of its cartilage. The Gee sizing guides were then placed to find the appropriate size and a small reduced glenoid was chosen. The guide pin was then drilled inferiorly in the glenoid and the reamers were applied. The appropriate size reamer was used to ream the glenoid space, which did get to subchondral bone. The sequential central peg we measured was then chosen. The guide was then placed to make sure that this had an appropriate fit. The final glenoid component was identified and then impacted into position. Once it was appropriately impacted, the 2 locking inferior and superior screws were then placed with excellent purchase of the bone. The glenosphere was then impacted into position and secured with a set screw. Attention was then directed to the shaft. The appropriate size diaphyseal fit was determined and was found to be 16 mm. The trial component was built on that and the appropriate liner was positioned. The greater tuberosity and lesser tuberosity and the bone fragments were then approximated to simulate with what the final bone implant would look like and the shoulder was reduced and taken through range of motion. Under appropriate amount of shuck and fit, the inferior stress was then placed to see if this would allow dislocation from pushing up from seated position. Once the appropriate trial was placed, she was found to have a good fit. At this point, final implants were chosen and brought to the back table. These were then carefully impacted into place with excellent purchase. Extra sutures were passed through the greater and lesser tuberosities to wrap around the stem. The shoulder was then reduced. The tuberosities were then secured, both to each other with horizontal mattress in Edwin-Axel type configuration and then pre-drilled hole in the lateral cortex with #5 Ethibond sutures were then used to secure in a cerclage fashion the lesser and greater tuberosities to the shaft itself. Once the fixation of the tuberosities was complete, the shoulder was taken through range of motion and found to be all in one piece. There was no evidence of loosening. Again, there was appropriate fit to the glenoid with range of motion and forward flexion to about 150 degrees, abduction to 90 degrees, external rotation to about 45 degrees. The wounds were copiously irrigated with sterile saline and an intraarticular drain was placed. The deltopectoral interval was closed with #2 Ethibond sutures. The skin was closed in layers with 2-0 Vicryl and 3-0 Monocryl. She was awoken from anesthesia and transferred to the PACU in stable condition. POSTOPERATIVE PLAN: She will be non-weightbearing. She will have limited range of motion of the shoulder and she will allow elbow, hand, and wrist range of motion as well as pendulums. The drain will be discontinued on postop day 1. She will receive 24 hours of postoperative antibiotics. She will be discharged on oral pain medication and be on DVT prophylaxis while admitted. DVT prophylaxis will be deferred after discharge due to no previous personal or family history. I will see the patient back in 10 to 14 days. [id number]/[facility] #: [id number] FAISAL
== END 2017-08-17 12:20 | disposition home health service (06) | DRG 483 ==
LOC: OR 10:23 → SSU 17:08
PROVIDERS: ADMIT Orthopaedic Surgery; ATTEND Orthopaedic Surgery
PROC: 0RRK00Z Replacement of Left Shoulder Joint with Reverse Ball and Socket Synthetic Substitute, Open Approach (ICD-10-PCS; principal; 2017-08-15 12:00)
DX: S42.242A 4-part fracture of surgical neck of left humerus, initial encounter for closed fracture (principal); R91.8 Other nonspecific abnormal finding of lung field; W10.9XXA Fall (on) (from) unspecified stairs and steps, initial encounter; Z96.642 Presence of left artificial hip joint; Y92.9 Unspecified place or not applicable; Z88.0 Allergy status to penicillin; Z88.5 Allergy status to narcotic agent; Z83.3 Family history of diabetes mellitus; Z82.49 Family history of ischemic heart disease and other diseases of the circulatory system; Z87.891 Personal history of nicotine dependence; Z80.9 Family history of malignant neoplasm, unspecified
CPT/HCPCS: 36415; 71250; 74176; 85014; 85018; 85025; 86850; 86900; 86901; 86922; 88305; 88311; A9270-GY; C1713; C1776; J1100; J1650; J1885; J2250; J2405; J2704; J2795; J3010; J7615; P9040

== ENCOUNTER 2018-02-13 10:52 | Emergency (ER) | payer MEDICARE ==
[2018-02-13 11:17] VITALS: BP 141/85
--- NOTE | 2018-02-13 11:22 | UC ---
Head Injury HPI - HPI Summary HPI Summary: This nice lady is accompanied to the urgent care with her daughter and granddaughter. Patient fell walking across the parking lot at her senior residence this morning. Was able to get herself up from the ground, denies LOC Patient to urgent care today with laceration and left eyebrow left eye ecchymosis and swelling. She also has ecchymosis and swelling in her upper lip teeth are intact no laceration inside lip. Her chin has multiple abrasions and ecchymosis as well. Patient complains of left chest wall pain with palpation and deep inspiration. Patient complains of left wrist pain with swelling and bruising and 2 superficial lacerations. - History Of Current Complaint Chief Complaint: UCTrauma Stated Complaint: FELL FACIAL INJURY WRIST INJURY Time Seen by Provider: 02/13/18 11:10 Hx Obtained From: Patient ?: No Mechanism Of Injury: fall Onset/Duration: Sudden Onset - Fall happened about 2 hours ago Severity Currently: Moderate Severity Initially: Moderate Pain Intensity: 5 Pain Scale Used: 0-10 Numeric Character: Sharp, Dull Aggravating Factor(s): Nothing Alleviating Factor(s): Nothing Associated Signs And Symptoms: Negative: Neck Pain, Nausea - Allergies/Home Medications Allergies/Adverse Reactions: Allergies Allergy/AdvReac Type Severity Reaction Status Date / Time MS Oxycodone [Oxycodone] Allergy Severe Vomiting Verified 02/13/18 11:08 MS Penicillins [PCN] Allergy Severe Hives Verified 02/13/18 11:08 PMH/Surg Hx/FS Hx/Imm Hx Previously Healthy: Yes - Surgical History Surgical History: Yes Surgery Procedure, Year, and Place: SMALL BOWEL OBSTRUCTION- 20+ YRS AGO- [place]. L HIP SURGERY- [place]. BILATERAL CATARACT EXTRACTION WITH IOL IMPLANT. L shoulder replacement 2017 - Family History Known Family History: Negative: Hypertension - Social History Occupation: Retired Lives: With Family Alcohol Use: Daily Alcohol Amount: 1 glass of wine/ day Substance Use Type: None Smoking Status (MU): Light Every Day Tobacco Smoker Type: Cigarettes Amount Used/How Often: 1 cig/ day or every other day Length of Time of Smoking/Using Tobacco: 50+ YRS Have You Smoked in the Last Year: No When Did the Patient Quit Smoking/Using Tobacco: 2011 Review of Systems Constitutional: Negative Skin: Bruising, Other - multiple lacerations and abrasion near left eye, on chin and left hand Eyes: Negative ENT: Negative Respiratory: Negative Cardiovascular: Chest Pain - chest wall pain--hurts to palpation and deep breath Gastrointestinal: Negative Genitourinary: Negative Motor: Decreased ROM - left wrist Neurovascular: Negative Musculoskeletal: Arthralgia - left wrist and left side of face Neurological: Negative Psychological: Negative Is Patient Immunocompromised?: No All Other Systems Reviewed And Are Negative: Yes Physical Exam Triage Information Reviewed: Yes Appearance: Well-Appearing, Pain Distress, Thin Vital Signs: Initial Vital Signs Temp 97.8 F 02/13/18 11:10 Pulse 98 02/13/18 11:10 Resp 18 02/13/18 11:10 BP 141/85 02/13/18 11:10 Pulse Ox 95 02/13/18 11:10 Vital Signs Reviewed: Yes Eye Exam: Other Eyes: Positive: Conjunctiva Clear, Other: - abrasion left eye brow contusion left eye, eomi, ENT Exam: Normal ENT: Positive: Normal ENT inspection, Hearing grossly normal, Pharynx normal, TMs normal, Uvula midline. Negative: Nasal congestion, Tonsillar swelling, Tonsillar exudate, Trismus, Muffled voice, Hoarse voice, Dental tenderness, Sinus tenderness Dental Exam: Normal Neck exam: Normal Neck: Positive: Supple, Nontender, No Lymphadenopathy Respiratory Exam: Normal Respiratory: Positive: Chest non-tender, Lungs clear, Normal breath sounds, No respiratory distress Cardiovascular Exam: Normal Cardiovascular: Positive: RRR, No Murmur, Pulses Normal, Brisk Capillary Refill Abdominal Exam: Normal Abdomen Description: Positive: Nontender, No Organomegaly, Soft. Negative: CVA Tenderness (R), CVA Tenderness (L) Bowel Sounds: Positive: Present Musculoskeletal Exam: Other Musculoskeletal: Positive: Strength Limited @ - left wrist, ROM Limited @ - left wrist, Edema @ - chin, left eye and wrist Neurological Exam: Normal Neurological: Positive: Alert, Muscle Tone Normal Psychological Exam: Normal Skin Exam: Other Skin: Positive: Other - bruising and multiple abrasions Diagnostics - Laboratory Diagnostic Studies Completed/Ordered: Facial CT showed no fractures, chest x- ray showed no fractures no acute thoracic trauma past evidence of COPD. CT scan of brain per Dr. De La Torre bilateral subdural and subarachnoid hemorrhages. Left wrist x-ray aborted due to acuity of the brain CT - EKG Cardiac Rate: NL Cardiac Rhythm: Sinus: Normal Ectopy: None ST Segment: Non-Specific Re-Evaluation - Re-Evaluation First Eval Change: Unchanged - Patient continues awake alert oriented moving all extremities 5 out of 5 no neurological deficits patient transfer by EMS in guarded but stable condition Head Injury Course/Dx - Course Course Of Treatment: IV started, O2 applied, left wrist splinted cock-up splint , patient transferred to [facility] via EMS - Differential Dx/Diagnosis Provider Diagnoses: Acute bilateral subdural subarachnoid hemorrhages bilaterally, facial laceration, left wrist pain, left chest wall pain. - Physician Notification/Consults Discussed Patient Care With: Uzma Alarcon Time Discussed With Above Provider: 12:05 Instructed by Provider To: Transfer Discharge - Sign-Out/Discharge Documenting (check all that apply): Discharge - Discharge Plan Condition: Guarded Disposition: TRANS HIGHER L OF CARE FAC Discharge Disposition Comment: patient transfer to higher level care by EMS to [facility] emerg Referrals: Sasha De La Vega MD [Primary Care Provider] - - Billing Disposition and Condition Condition: GUARDED Disposition: EMTALA
--- NOTE | 2018-02-13 12:03 | RAD ---
INDICATION: LEFT rib/chest pain post fall. COMPARISON: December 01, 2017 CT. TECHNIQUE: Dual energy PA and routine lateral views of the chest were obtained. REPORT: Elevated lung volumes and both diffuse mild prominence of the interstitial markings and patchy rarefaction of the mid to upper lung zone interstitial markings. No focal pulmonary lesion, compelling alveolar consolidation, pleural effusion, pneumothorax. The heart, pulmonary vasculature, and mediastinal contours are unremarkable. No rib fracture or abnormal soft tissue contour evident. Reversed LEFT shoulder joint replacement noted. IMPRESSION: 1. No radiographic evidence for traumatic thoracic injury. 2. COPD.
--- NOTE | 2018-02-13 12:09 | RAD ---
HISTORY: Fall, facial injury COMPARISONS: Head CT dated February 13, 2018 TECHNIQUE: Multiple contiguous axial CT scans were obtained of the face without intravenous contrast, with coronal and sagittal multiplanar reformations. FINDINGS: BONES: There is no displaced fracture or dislocation. The orbital rim is intact. The zygomatic arch is intact. The pterygoid plates are intact. There is diffuse osteopenia. Degenerative changes are noted of the spine. ORBITS: The globes are round. The optic nerves are symmetric. The extraocular musculature is normal. There is no post septal or intraconal inflammatory change. There is no retrobulbar hematoma. PARANASAL SINUSES: There is air-fluid level within the left maxillary sinus. The nasal septum is deviated to the left. BRAIN AND SOFT TISSUE: There are bilateral subdural hematomas as noted on the CT of the head. OTHER: None. IMPRESSION: 1. NO FACIAL FRACTURE. 2. BILATERAL SUBDURAL HEMATOMAS NOTED ON CT OF THE HEAD. 3. DIFFUSE OSTEOPENIA. 4. DEGENERATIVE CHANGES.
--- NOTE | 2018-02-13 12:10 | RAD ---
Indication: Left wrist injury after fall. 3 views left wrist demonstrates undisplaced fracture through the distal radial metaphysis which likely extends into the joint space. There also appears to be a nondisplaced fracture of the ulnar styloid process. IMPRESSION: Likely nondisplaced fracture of the distal radius and ulnar styloid process without definite angulation.
--- NOTE | 2018-02-13 12:12 | RAD ---
Indication: Fall. Multiple facial lacerations, swelling, bruising. Comparison: August 01, 2017 Technique: Noncontrast CT vertex of skull through foramen magnum. Report: Bilateral small hyperdense predominant frontal subdural hematomas measuring up to 0.9 cm transverse on the RIGHT and 0.5 cm transverse on the LEFT. Underlying chronic hygromas or chronic subdural hematomas with the acute and chronic process measuring up to 1.1 cm transverse on the RIGHT and 1.4 cm transverse on the LEFT. In addition there is a small volume of bilateral subarachnoid hematoma primarily involving the frontal lobes. Negative for intraventricular hemorrhage. Mild bilateral frontal lobe sulcal effacement with involutional change mitigating against more significant mass effect. Negative for midline shift. The basal cisterns remain patent. Decreased density in the periventricular and subcortical white matter while non-specific is most likely due to chronic microangiopathy. Negative for oro matter white matter obscuration, intra or extra-axial hemorrhage, or mass effect. 4 mm chronic lacunar infarct at the LEFT caudate head. Negative for calvarial or skull base fracture. Negative for scalp hematoma. Fluid level at the LEFT maxillary sinus. Clear mastoid air spaces. IMPRESSION: Bilateral small hyperdense predominant frontal subdural hematomas measuring up to 0.9 cm transverse on the RIGHT and 0.5 cm transverse on the LEFT. Underlying chronic hygromas or chronic subdural hematomas with the acute and chronic process measuring up to 1.1 cm transverse on the RIGHT and 1.4 cm transverse on the LEFT. In addition there is a small volume of bilateral subarachnoid hematoma primarily involving the frontal lobes. Negative for subfalcine or downward herniation. Results discussed with ABELINO Barnes 02/13/2018 12:00 PM EDT
== END 2018-02-13 12:15 | disposition short-term general hospital (02) ==
LOC: UCEAST 10:52
DX: S06.6X0A Traumatic subarachnoid hemorrhage without loss of consciousness, initial encounter (principal); S01.112A Laceration without foreign body of left eyelid and periocular area, initial encounter; S60.512A Abrasion of left hand, initial encounter; W18.30XA Fall on same level, unspecified, initial encounter; Y93.01 Activity, walking, marching and hiking; Y92.481 Parking lot as the place of occurrence of the external cause; M25.532 Pain in left wrist; R07.89 Other chest pain; J44.9 Chronic obstructive pulmonary disease, unspecified; Z88.5 Allergy status to narcotic agent; Z88.0 Allergy status to penicillin; Z87.891 Personal history of nicotine dependence
CPT/HCPCS: 70450; 70486; 71046; 93005; 99213; G0463

== ENCOUNTER 2018-02-13 12:38 | Inpatient (IN) | payer MEDICARE ==
[2018-02-13] MEDS ORDERED: Bacitracin OINTMENT* 0.5% 0.5 oz TUBE TOPICAL ONE (13:07)
--- NOTE | 2018-02-13 13:28 | RAD ---
HISTORY: Subdural hematoma, trauma COMPARISONS: None TECHNIQUE: Multiple contiguous axial CT scans were obtained of the cervical spine without intravenous contrast, with coronal and sagittal multiplanar reformations. FINDINGS: BRAIN: The visualized brain is unremarkable. The subdural hematomas noted on PET/CT are not within the [id number] the current examination. CENTRAL CANAL: Evaluation of the central canal is limited on CT technique; however, there is no obvious canalicular mass or epidural hemorrhage. ALIGNMENT: The alignment is normal, without subluxation or dislocation. VERTEBRAL BODIES: There is diffuse osteopenia. Is multilevel anterolateral marginal osteophyte formation with sclerotic reactive endplate changes. There is no displaced fracture. JOINTS: There is uncovertebral and facet osteoarthritis. There is osteoarthritis of the atlantoaxial articulation. MUSCULATURE: Unremarkable INTERVERTEBRAL DISCS: There is diffuse loss of intervertebral disc height. AXIAL IMAGES: There is moderate diffuse narrowing of the neural foramina with relative sparing of C2-C3 and C7-T1. There is mild narrowing of the central canal at C3-C4 and C4-C5. SOFT TISSUES: The prevertebral soft tissues are preserved. There is biapical centrilobular and panacinar emphysematous change. OTHER: None. IMPRESSION: 1. OSTEOPENIA. 2. DEGENERATIVE DISC DISEASE AND OSTEOARTHRITIS. 3. EMPHYSEMA. 4. NO ACUTE OSSEOUS INJURY TO THE CERVICAL SPINE
[2018-02-13 13:46] LABS: ABS Basophils 0.1 10^3/ul (0-0.2); ABS Eosinophils 0 10^3/ul (0-0.6); ABS Monocytes 0.5 10^3/ul (0-0.8); ABS Neutrophils 7.6 10^3/ul (1.5-7.7); ABS Nucleated RBC 0 10^3/ul; Eosinophil % 0.3 % (0-6); Hematocrit 40 % (35-47); Hemoglobin 13.4 g/dl (12.0-16.0); Lymphocyte % 11.2 % (25-47); Mean Corpuscular HGB Conc 33 g/dl (31-36); Mean Corpuscular Hemoglobin 31 pg (27-31); Mean Corpuscular Volume 94 fL (80-97); Mean Platelet Volume 8.3 um3 (7.4-10.4); Nucleated Red Blood Cells % 0; Platelet Count 140 10^3/ul (150-450); Red Blood Count 4.31 10^6/ul (4.0-5.4); Red Cell Distribution Width 14 % (10.5-15); White Blood Count 9.2 10^3/ul (3.5-10.8)
[2018-02-13 13:58] LABS: INR 0.93 (0.77-1.02)
[2018-02-13 14:11] LABS: EGFR Non-African American 67.7 (>60)
--- NOTE | 2018-02-13 14:22 | PN ---
Progress Note - Progress Note Date of Service: 02/13/18 Note: Fiberglass Volar splint applied NV intact before and after splint placement Patient tolerated well Denies pain, numbness or tingling Will have Dr. Rodriguez to see patient while in the ED. Uzma Alarcon PA-C
[2018-02-13] MEDS ORDERED: Acetaminophen TAB* 325 MG ONE (14:26)
[2018-02-13] MEDS ORDERED: Acetaminophen TAB* 325 MG PO ONE (14:27)
[2018-02-13] MEDS ORDERED: Ondansetron INJ* 2 MG/ML VIAL IV PRN (14:43)
--- NOTE | 2018-02-13 16:22 | ED ---
Mary Carmen Abdalla Julia, scribed for Bronson Brasher MD on 02/13/18 at 1250 . Adult Trauma - HPI Summary HPI Summary: This patient is a 82 year old F BIBA to [facility] from urgent care accompanied by her family due to a fall occurring at 09:45 today. She states she slipped on wet grass and fell face first into concrete. She reports left wrist pain. Patient denies LOC, headache, numbness or weakness, abdominal pain, chest pain, hip pain, and shoulder pain. She states that she can ambulate okay. Her last tetanus shot was in 2014. Imagining from urgent care reveals bilateral frontal brain bleed. Patient is not taking any regular medications. - History of Current Complaint Stated Complaint: FALL/HEAD INJURY Time Seen by Provider: 02/13/18 12:40 Hx Obtained From: Patient Mechanism of Injury: Fall Ambulatory at the Scene: Yes Loss of Consciousness: no loss of consciousness Onset of Pain: Immediate Location: Other - left wrist Associated Signs & Symptoms: Positive: Negative, Other: - OC, headache, numbness or weakness, abdominal pain, chest pain, hip pain, and shoulder pain. - Additional Pertinent History Primary Care Physician: [id number] - Allergy/Home Medications Allergies/Adverse Reactions: Allergies Allergy/AdvReac Type Severity Reaction Status Date / Time oxycodone Allergy Vomiting Verified 02/13/18 12:53 Penicillins Allergy Hives Verified 02/13/18 12:53 Home Medications: Home Medications Multivitamins/Minerals TAB* [Theragran/minerals TAB*] 1 tab PO DAILY 02/13/18 [ History Confirmed 02/13/18] PMH/Surg Hx/FS Hx/Imm Hx Endocrine/Hematology History: Denies: Hx Diabetes, Hx Systemic Lupus Erythematosus Cardiovascular History: Denies: Hx Congestive Heart Failure, Hx Hypertension Respiratory History: Reports: Other Respiratory Problems/Disorders - "COUGH", SEE NOTE BELOW Denies: Hx Chronic Obstructive Pulmonary Disease (COPD) GI History: Reports: Other GI Disorders - SMALL BOWEL OBSTRUCTION MANY YRS AGO History: Denies: Hx Dialysis, Hx Renal Disease Musculoskeletal History: Reports: Other Musculoskeletal History - 07/27 FX LEFT PROXIMAL HUMERUS Denies: Hx Rheumatoid Arthritis Sensory History: Reports: Hx Contacts or Glasses - READING ONLY Denies: Hx Cataracts, Hx Glaucoma, Hx Hearing Aid Opthamlomology History: Reports: Hx Contacts or Glasses - READING ONLY Denies: Hx Cataracts, Hx Glaucoma Neurological History: Reports: Other Neuro Impairments/Disorders - RECENT FX LEFT HUMERUS, N/T/WEAKNESS - Cancer History Hx Chemotherapy: No - Surgical History Surgery Procedure, Year, and Place: SMALL BOWEL OBSTRUCTION- 20+ YRS AGO- [place]. L HIP SURGERY- [place]. BILATERAL CATARACT EXTRACTION WITH IOL IMPLANT. L shoulder replacement 2017 Hx Anesthesia Reactions: No Infectious Disease History: Denies: Traveled Outside the [place] in Last 30 Days - Family History Known Family History: Negative: Hypertension - Social History Alcohol Use: Daily Alcohol Amount: 1 glass of wine/ day Substance Use Type: Reports: None Smoking Status (MU): Light Every Day Tobacco Smoker Type: Cigarettes Amount Used/How Often: 1 cig/ day or every other day Length of Time of Smoking/Using Tobacco: 50+ YRS Have You Smoked in the Last Year: No Review of Systems Negative: Chest Pain Negative: Shortness Of Breath Negative: Abdominal Pain Musculoskeletal: Other - ambulates well Positive: Myalgia - left wrist pain Negative: Headache All Other Systems Reviewed And Are Negative: Yes Physical Exam - Summary Physical Exam Summary: Appearance: Well appearing, no pain distress Skin: warm, dry, reflects adequate perfusion, moist mucous membranes Head/face: ecchymosis to chin and upper lip, small laceration to mucous of upper lip, no septal hematoma, ecchymosis around the left eye, small avulsion to the lateral aspect of the left brow Eyes: EOMI, KIERRA, cataract lenses ENT: TM occluded by wax Neck: supple, non-tender Respiratory: CTA, breath sounds present Cardiovascular: RRR, pulses symmetrical Abdomen: non-tender, soft Bowel Sounds: present Musculoskeletal: strength/ROM intact, abrasion to the dorsal aspect of left hand , tenderness and edema to the distal radius Neuro: normal, sensory motor intact, A&Ox3 Triage Information Reviewed: Yes Vital Signs On Initial Exam: Initial Vitals Temp Pulse Resp BP Pulse Ox 98.8 F 89 16 156/92 100 02/13/18 12:51 02/13/18 12:51 02/13/18 12:51 02/13/18 12:51 02/13/18 12:51 Vital Signs Reviewed: Yes Diagnostics - Vital Signs Vital Signs Temp Pulse Resp BP Pulse Ox 02/13/18 15:21 98.8 F 76 18 115/71 98 02/13/18 14:30 133/75 02/13/18 14:00 119/71 02/13/18 13:34 127/83 02/13/18 12:51 98.8 F 89 16 156/92 100 - Laboratory Lab Results: Lab Results 02/13/18 02/13/18 02/13/18 Range/Units 13:39 13:39 13:39 WBC 9.2 (3.5-10.8) 10^3/ul RBC 4.31 (4.0-5.4) 10^6/ul Hgb 13.4 (12.0-16.0) g/dl Hct 40 (35-47) % MCV 94 (80-97) fL MCH 31 (27-31) pg MCHC 33 (31-36) g/dl RDW 14 (10.5-15) % Plt Count 140 L (150-450) 10^3/ul MPV 8.3 (7.4-10.4) um3 Neut % (Auto) 82.3 (38-83) % Lymph % (Auto) 11.2 L (25-47) % [place] % (Auto) 5.4 (0-7) % Eos % (Auto) 0.3 (0-6) % Baso % (Auto) 0.8 (0-2) % Absolute Neuts (auto) 7.6 (1.5-7.7) 10^3/ul Absolute Lymphs (auto) 1.0 (1.0-4.8) 10^3/ul Absolute Monos (auto) 0.5 (0-0.8) 10^3/ul Absolute Eos (auto) 0 (0-0.6) 10^3/ul Absolute Basos (auto) 0.1 (0-0.2) 10^3/ul Absolute Nucleated RBC 0 10^3/ul Nucleated RBC % 0 INR (Anticoag Therapy) 0.93 (0.77-1.02) APTT 26.8 (26.0-36.3) seconds Sodium 138 L (139-145) mmol/L Potassium 4.1 (3.5-5.0) mmol/L Chloride 104 (101-111) mmol/L Carbon Dioxide 25 (22-32) mmol/L Anion Gap 9 (2-11) mmol/L BUN 14 (6-24) mg/dL Creatinine 0.81 (0.51-0.95) mg/dL Est GFR ( Amer) 87.1 (>60) Est GFR (Non-Af Amer) 67.7 (>60) BUN/Creatinine Ratio 17.3 (8-20) Glucose 102 H (70-100) mg/dL Calcium 9.9 (8.6-10.3) mg/dL Total Bilirubin 0.60 (0.2-1.0) mg/dL AST 21 (13-39) U/L ALT 10 (7-52) U/L Alkaline Phosphatase 59 (34-104) U/L Total Protein 7.1 (6.4-8.9) g/dL Albumin 4.2 (3.2-5.2) g/dL Globulin 2.9 (2-4) g/dL Albumin/Globulin Ratio 1.4 (1-3) Result Diagrams: 02/13/18 13:39 02/13/18 13:39 Lab Statement: Any lab studies that have been ordered have been reviewed, and results considered in the medical decision making process. - Radiology CXR Radiology Interpretation Completed By: Radiologist - 1. No radiographic evidence for traumatic thoracic injury. 2. COPD. ED Physician has reviewed this report. L Wrist XR Radiology Interpretation Completed By: Radiologist - Likely nondisplaced fracture of the distal radius and ulnar styloid process without definite angulation. ED Physician has reviewed this report. - CT Brain CT CT Interpretation Completed By: Radiologist - Bilateral small hyperdense predominant frontal subdural hematomas measuring up to 0.9 cm transverse on the RIGHT and 0.5 cm transverse on the LEFT. Underlying chronic hygromas or chronic subdural hematomas with the acute and chronic process measuring up to 1.1 cm transverse on the RIGHT and 1.4 cm transverse on the LEFT. In addition there is a small volume of bilateral subarachnoid hematoma primarily involving the frontal lobes. Negative for subfalcine or downward herniation. Results discussed with ABELINO Barnes 02/13/2018 12:00 PM EDT ED Physician has reviewed this report. C-spine CT Interpretation Completed By: Radiologist - 1. OSTEOPENIA. 2. DEGENERATIVE DISC DISEASE AND OSTEOARTHRITIS. 3. EMPHYSEMA. 4. NO ACUTE OSSEOUS INJURY TO THE CERVICAL SPINE ED Physician has reviewed this report Maxillofacial CT Interpretation Completed By: Radiologist - 1. NO FACIAL FRACTURE. 2. BILATERAL SUBDURAL HEMATOMAS NOTED ON CT OF THE HEAD. 3. DIFFUSE OSTEOPENIA. 4. DEGENERATIVE CHANGES. ED Physician has reviewed this report. - EKG 1255 Cardiac Rate: NL - at 83 BPM EKG Rhythm: Sinus Rhythm ST Segment: Normal EKG Interpretation: nml axis, nml interval Re-Evaluation - Re-Evaluation First Eval Change: Unchanged - developed minor headache and was tx with tylenol Adult Trauma Course/Dx - Course Course Of Treatment: Pt with oswaldo SDH. Neuro intact. D/W Neurosurg on arrival. On no antiplatelet tx. Wrist splinted by PA. Neurovasc intact extremity. CT spine neg. Stable thru admission. Neurosurgeon visited in ED. No critical care performed on the ED visit. - Diagnoses Provider Diagnoses: Bilateral subdural hematomas, Fracture of left distal radius, Facial contusion , Skin tear Discharge - Sign-Out/Discharge Documenting (check all that apply): Discharge - Discharge Plan Condition: Guarded Disposition: ADMITTED TO [facility] - Billing Disposition and Condition Condition: GUARDED Disposition: [facility] [place] Consult Consult: At 12:44, Dr. Vinson, neurosurgery, recommends admission to ICU by the hospitalists and a CT of the C-spine. At 12:47, Dr. Mccord, hospitalist, agrees to admit the patient. The documentation as recorded by the Mary Carmen negrete Julia accurately reflects the service I personally performed and the decisions made by Sameera madden Kirk, MD.
--- NOTE | 2018-02-13 17:19 | PN ---
Progress Note - Progress Note Date of Service: 02/13/18 SOAP: Subjective: []Asked to see patient that fell face first at PA in [place]. Tamen to ER where CT showed bilateral SDH.Patient awake,alert and c/o mild headache.No hx of blood thinners.Patient being admitted to ICU for observation on hospitalist service. Objective: [] Bilateral racoon eyes contusion of chin Neuro intact Assessment: []CT shows small bilateral acute SDH with moderate brain atrophy Plan: [] Bilateral SDH Suggest Neuro checks in ICU,F/U CT in AM Discussed potential need for surgery if she worsens and clots enlarge with son, daughter and patient Full C/S to follow
--- NOTE | 2018-02-13 20:39 | HP ---
CC: Dr. Vinson; Dr. De La Vega * HISTORY AND PHYSICAL: DATE OF ADMISSION: 02/13/18 PRIMARY CARE PROVIDER: Dr. De La Vega. ATTENDING PHYSICIAN WHILE IN THE HOSPITAL: Shyla Mccord DO * (report dictated by Puneet Bateman NP) CHIEF COMPLAINT: Fall. HISTORY OF PRESENT ILLNESS: Mrs. Cuba is an 82-year-old female patient with really no medical problems that comes in to our emergency department today stating that she usually gets up every morning, she goes out for a walk, she will walk out of her senior home and just walk around the complex. She said she was finishing the walk, returning to her room and unfortunately when she stepped on the wet grass, she lost her balance, she slipped, she fell, she landed on her face. She said she had put her left arm out to try to break her fall. She did not think to have any syncope or chest pain prior to the event. She said after the event she noticed when she got through the office, her chest was tender and painful. She states she definitely landed on her left chest. This occurred in front of some construction workers, she said they were doing work on her building. They said to her maybe she needs to be evaluated and go and get checked out, so she went to the office, saw the airplane first officer from her senior complex. They took one look at her and called 911. The patient alerted her family and they accompanied her to the hospital. Again, she denied having any fainting episode. She states that recently she has not been having any trouble with vomiting, diarrhea. No cold symptoms. No fevers or chills. She has not had any abdominal pain. There has been no chest pain or shortness of breath and she states she is not taking any medications besides the multivitamin. She came in to the ED today, was evaluated. She initially went to urgent care, was evaluated. There, they found that she had bilateral subdural hematomas. In addition to this, also had a small bilateral subarachnoid hemorrhage. She came in, was evaluated and we were asked to evaluate for admission due to the findings on CT imaging. PAST MEDICAL HISTORY: Again significant for she has had a history of a right lung mass that was seen in August and then the mass was reevaluated 3 months later and the mass was significantly reduced in size. We are going to get records from Dr. Booker's office. She also has a history of SBO. PAST SURGICAL HISTORY: 1. She has had left total hip replacement. 2. She has had left shoulder ORIF for a humerus fracture. MEDICATIONS: Home medications include multivitamin 1 tablet daily. ALLERGIES TO MEDICATIONS: Include PENICILLIN and OXYCODONE. FAMILY HISTORY: She does report history of diabetes and heart disease and cancer. SOCIAL HISTORY: She does smoke 1 to 2 cigarettes a day. She drinks a glass of wine at night. Surrogate decision maker is her daughter. REVIEW OF SYSTEMS: There is no documented fever. She denied having any significant weight change. There was no double vision. She denies having any ear discharge. There is no rhinorrhea. There is no sore throat. No thyroid enlargement. She denied having any chest discomfort with the exception that her left chest is now tender she said and hurts with movement. She denies having any orthopnea. No shortness of breath. No abdominal pain. No nausea, no vomiting. No dysuria, no frequency. No seizure. There was no loss of consciousness. No pruritus and no skin ulcerations. Review of 14 systems was completed, all others negative. PHYSICAL EXAMINATION GENERAL: At this time, Mrs. Cuba is an 82-year-old female patient. She is sitting in the ED stretcher. Does not appear to be in any acute distress. She appears to be well nourished and well developed. VITAL SIGNS: Blood pressure 156/92, pulse 89, respirations 16, O2 sat 100%, temperature 98.8. HEENT: Head: She does have noted ecchymosis to the left eye, to the left side of her face and left mandible area. Otherwise, atraumatic. Her eyes, EOMs intact. Sclerae anicteric and not pale. Pupils were equal and reactive to light and accommodation. Throat: Oral mucosa appears to be moist. No oropharyngeal erythema. NECK: Supple. There was no midline tenderness on the neck. No tenderness palpated on exam. LUNGS: Clear to auscultation bilaterally. No wheezes, rales, or rhonchi. HEART: Sounds S1, S2. Regular rate and rhythm. No murmurs, rubs, or gallops. ABDOMEN: Soft, flat, nontender. Bowel sounds were present. EXTREMITIES: Pulses were 2+ throughout. She is moving all 4 extremities with 5 /5 strength. Distal CSM checks were intact to the left upper extremity. NEUROLOGIC: She is awake, alert. She is oriented x3. Her speech is clear. Tongue is midline. No facial drooping. Jute Bag Clipper were equal. No gross focal deficits. No focal weakness was noted. SKIN: Intact with the exception she has got a significant amount of ecchymosis noted on the left side of her face. LABORATORY DATA/DIAGNOSTIC STUDIES: WBC 9.2, RBC of 4.31, hemoglobin of 13.4, hematocrit of 40, platelet count of 140,000. The INR 0.93. PTT of 26.8. Sodium 138, potassium 4.1, chloride 103, bicarb 25, BUN 14, creatinine 0.81, glucose 102. Calcium 9.9. Total bili 0.6. AST 21, ALT 10, alk phos 59. Albumin of 4.2. She did have a cervical spine CT today here in the ED, impression: Osteopenia and degenerative disk disease and osteoarthritis, emphysema, no acute osseous injury to the cervical spine. She had multiple imaging over at [facility] where she originally presented starting out with a brain CT. Impression: Bilateral small hyperdense predominant frontal subdural hematomas measuring up to 0.9 cm transverse on the right and 0.5 cm transverse on the left, underlying chronic hygromas or chronic subdural hematomas with the acute on chronic process measuring up to 1.1 cm transverse on the right, 1.4 cm transverse on the left. In addition, there is a small volume of bilateral subarachnoid hematoma primarily involving the frontal lobes negative for subfalcine or downward herniation. She did have a maxillofacial CT which showed no facial fracture, bilateral subarachnoid hematomas noted on CT head, diffuse osteopenia and diffuse degenerative changes. There was a wrist x-ray obtained today, which revealed likely nondisplaced fracture of the distal radius and ulnar styloid process without definite angulation. There was a chest x-ray obtained today, which revealed no radiographic evidence for traumatic thoracic injury, COPD. There was an EKG obtained today, which showed normal sinus rhythm, rate of 83. No ST elevations or T wave inversions were noted, it is reviewed to the previous EKG and appears to be unchanged. Old medical records were reviewed. ASSESSMENT AND PLAN: Mrs. Cuba is an 82-year-old female patient coming into the ED today with complaints of mechanical fall and on evaluation found to have bilateral subdural hematomas and subarachnoid hematomas. We were asked to evaluate for admission. She will be admitted under inpatient status for: 1. Bilateral subdural hematomas and subarachnoid hematomas. Dr. Vinson will be evaluating the patient today. The patient is clinically stable, not having any neurological deficits whatsoever. Plan will be for q.[address] of the brain in the morning and continue to follow her and within the next 24 hours could consider PT evaluation, but I would like to get her out of this acute period befor ambulating her with PT. We should consider PT evaluation prior to discharge. 2. Left wrist fracture. I did touch base with Orthopedics. They would recommend followup in the outpatient setting. She has a splint and this is being placed by Dr. Brasher. 3. History of lung mass. I am going to get records Dr. Booker's office as there has been no biopsies of this. The mass did shrink based on imaging from August to November. 4. History of small bowel obstruction. Not an active issue. 5. DVT prophylaxis. SCDs have been ordered given the hemorrhage in the brain. 6. Fluids, electrolytes, and nutrition. She will be on a regular diet. 7. Code status: She wishes to be a do not resuscitate. I am going to try to see if we can find a MOLST form for her; if not, we will certainly fill one out. TIME SPENT: Time spent on this admission was 70 minutes; greater than half the time was spent [id number] with the patient obtaining my history and physical; the other half the time was spent going over the plan of care with the patient and implementing the plan of care. I did discuss this case in detail with my attending, Dr. Mccord; she is in agreement. PUNEET BATEMAN, ABELINO [id number]/CPS #: [id number] FAISAL
[2018-02-13] MEDS: Acetaminophen TAB* 325 MG PO PRN (21:10)
[2018-02-14] MEDS: Acetaminophen TAB* 325 MG PO PRN ×3 (04:09→17:15)
[2018-02-14 06:46] LABS: ABS Basophils 0 10^3/ul (0-0.2); ABS Eosinophils 0.2 10^3/ul (0-0.6); ABS Monocytes 0.5 10^3/ul (0-0.8); ABS Nucleated RBC 0 10^3/ul; Eosinophil % 2.7 % (0-6); Hematocrit 38 % (35-47); Hemoglobin 12.7 g/dl (12.0-16.0); Lymphocyte % 17.4 % (25-47); Mean Corpuscular HGB Conc 34 g/dl (31-36); Mean Corpuscular Hemoglobin 31 pg (27-31); Mean Corpuscular Volume 93 fL (80-97); Mean Platelet Volume 8.5 um3 (7.4-10.4); Nucleated Red Blood Cells % 0; Platelet Count 126 10^3/ul (150-450); Red Blood Count 4.04 10^6/ul (4.0-5.4); Red Cell Distribution Width 14 % (10.5-15); White Blood Count 5.7 10^3/ul (3.5-10.8)
[2018-02-14 06:52] LABS: INR 0.95 (0.77-1.02)
[2018-02-14 07:00] LABS: EGFR Non-African American 75.1 (>60)
[2018-02-14 07:49] LABS: Urine Appearance Clear; Urine Blood Negative (Negative); Urine Color Yellow; Urine Ketones Negative (Negative); Urine Protein Negative (Negative); Urine Urobilinogen Negative (Negative)
[2018-02-14] MEDS: Multivitamins/Minerals TAB PO SCH (08:12)
--- NOTE | 2018-02-14 08:31 | PN ---
Subjective Date of Service: 02/14/18 Interval History: Patient seen and examined at bedside. Denies fever, chills, headache, shortness of breath, chest discomfort, N/V/D. Pt reports left arm pain and dizziness when she first got up this AM. Tele: Sinus rhythm, rate 70-80's Family History: Unchanged from Admission Social History: Unchanged from Admission Past Medical History: Unchanged from Admission Objective Active Medications: Acetaminophen (Tylenol Tab*) 650 mg PO Q4H PRN Reason: FEVER/PAIN Multivitamins/Minerals (Theragran/Minerals Tab*) 1 tab PO DAILY ANGELO Ondansetron HCl (Zofran Inj*) 4 mg IV Q6H PRN Reason: NAUSEA Vital Signs - 8 hr 02/14/18 02/14/18 02/14/18 01:00 02:00 03:00 Temperature Pulse Rate 71 71 76 Respiratory 19 18 22 Rate Blood Pressure 107/64 95/57 79/53 (mmHg) O2 Sat by Pulse 94 93 92 Oximetry 02/14/18 02/14/18 02/14/18 03:01 04:00 05:00 Temperature 98.7 F Pulse Rate 68 64 68 Respiratory 19 21 15 Rate Blood Pressure 103/53 112/60 101/57 (mmHg) O2 Sat by Pulse 93 93 91 Oximetry 02/14/18 02/14/18 02/14/18 05:57 06:00 07:00 Temperature Pulse Rate 66 68 Respiratory 18 15 18 Rate Blood Pressure 99/61 110/63 (mmHg) O2 Sat by Pulse 95 100 Oximetry 02/14/18 02/14/18 02/14/18 07:35 07:55 08:00 Temperature Pulse Rate 70 Respiratory 17 24 Rate Blood Pressure 108/66 (mmHg) O2 Sat by Pulse 96 92 Oximetry Oxygen Devices in Use Now: None Appearance: NAD, laying in bed Ears/Nose/Mouth/Throat: Mucous Membranes Moist Respiratory: Symmetrical Chest Expansion and Respiratory Effort, Clear to Auscultation Cardiovascular: NL Sounds; No Murmurs; No JVD, RRR Abdominal: NL Sounds; No Tenderness; No Distention Extremities: No Edema - , LE, - - Mild swelling to left fingers Skin: - - Splint to left arm. Ecchymosis to left eye, left side of chin and upper lip Neurological: Alert and Oriented x 3, NL Muscle Strength and Tone Lines/Tubes/Other Access: Clean, Dry and Intact Peripheral IV - site benign Nutrition: Taking PO's Result Diagrams: 02/14/18 06:30 02/14/18 06:30 Additional Lab and Data: Microbiology and Other Data: Microbiology 02/13/18 20:55 Nasal Screen MRSA (PCR)(MELBA) - Final Nasal Mrsa Not Detected Assess/Plan/Problems-Billing Assessment: Ms. Cuba is an 82 yo female with PMH significant for a right lung mass who presented to the emergency room after a mechanical fall and was found to have bilateral SDH and SAH. - Patient Problems (1) SDH (subdural hematoma) Code(s): I62.00 - NONTRAUMATIC SUBDURAL HEMORRHAGE, UNSPECIFIED SNOMED Code(s) : 50668108 Comment: - Bilateral SDH and SAH - Repeat CT scan this AM - Neurosurgery consult, input appreciated - Continue neuro checks (2) Left wrist fracture Code(s): S62.102A - FRACTURE OF UNSP CARPAL BONE, LEFT WRIST, INIT FOR CLOS FX SNOMED Code(s): 575977263 Comment: - Continue splint - Orthopedics follow-up outpatient (3) Tumor of lung Code(s): D49.1 - NEOPLASM OF UNSPECIFIED BEHAVIOR OF RESPIRATORY SYSTEM SNOMED Code(s): 036999712 Comment: - Left lung - Will attempt to get records from Dr. Booker's office (4) DVT prophylaxis Code(s): VCH9789 - SNOMED Code(s): 708154423 Comment: - SCDs - No chemical DVT prophylaxis in the setting of SDH and SAH (5) DNR (do not resuscitate) Status and Disposition: Inpatient. Discharge to home when medically stable.
--- NOTE | 2018-02-14 08:55 | RAD ---
INDICATION: Subdural hematomas. COMPARISON: Comparison is made with prior CTs of the brain from August 01, 2017 and February 13, 2018. TECHNIQUE: Contiguous axial sections of the brain were obtained from the skull base to the vertex without contrast. FINDINGS: The ventricles, cisterns and sulci are enlarged consistent with diffuse atrophy. There appear to be chronic bilateral subdural hygromas which are unchanged from prior studies. As noted on the recent prior study there are acute bilateral subdural hematomas. These have improved significantly from the prior exam with near complete resolution of the acute component on the left side and a small residual subdural hematoma on the right side which is also decreased in size measuring up to 6 mm in thickness in greatest dimension. There is also subarachnoid hemorrhage which is most prominent adjacent to the anterior and mid falx and in several sulci adjacent to the frontal lobes which is also decreased from the prior exam. There appear to be chronic subdural hygromas around the cerebellar hemispheres which are also unchanged from prior studies. There is a small air-fluid level in the left maxillary sinus which is unchanged. The visualized portion of the predental sinuses and mastoid air cells otherwise appear clear. IMPRESSION: 1. BILATERAL SUBDURAL HEMATOMAS IMPROVED. 2. SUBARACHNOID HEMORRHAGE ALSO IMPROVED.
[2018-02-15] MEDS: Acetaminophen TAB* 325 MG PO PRN (06:26)
[2018-02-15] MEDS: Multivitamins/Minerals TAB PO SCH (09:30)
[2018-02-15 12:18] VITALS: BP 119/68
--- NOTE | 2018-02-15 13:32 | PN ---
Subjective Date of Service: 02/15/18 Interval History: Patient seen and examined at bedside. Denies fever, chills, headache, lightheadedness or dizziness, shortness of breath, chest discomfort, N/V/D. Family History: Unchanged from Admission Social History: Unchanged from Admission Past Medical History: Unchanged from Admission Objective Active Medications: Acetaminophen (Tylenol Tab*) 650 mg PO Q4H PRN Reason: FEVER/PAIN Multivitamins/Minerals (Theragran/Minerals Tab*) 1 tab PO DAILY ANGELO Ondansetron HCl (Zofran Inj*) 4 mg IV Q6H PRN Reason: NAUSEA Vital Signs - 8 hr 02/15/18 02/15/18 02/15/18 07:27 08:00 11:32 Temperature 98.5 F 97.7 F Pulse Rate 71 71 Respiratory 16 16 16 Rate Blood Pressure 97/54 119/68 (mmHg) O2 Sat by Pulse 93 Oximetry 02/15/18 11:37 Temperature Pulse Rate Respiratory Rate Blood Pressure (mmHg) O2 Sat by Pulse 99 Oximetry Oxygen Devices in Use Now: None Appearance: NAD, sitting up in a chair Ears/Nose/Mouth/Throat: Mucous Membranes Moist Respiratory: Symmetrical Chest Expansion and Respiratory Effort, Clear to Auscultation Cardiovascular: NL Sounds; No Murmurs; No JVD, RRR Abdominal: NL Sounds; No Tenderness; No Distention Extremities: No Edema Skin: - - Ecchymosis to upper lip, left eye and chin. Splin to left wrist clean , dry and intact Neurological: Alert and Oriented x 3, NL Muscle Strength and Tone Lines/Tubes/Other Access: Clean, Dry and Intact Peripheral IV - site benign Nutrition: Taking PO's Result Diagrams: 02/14/18 06:30 02/14/18 06:30 Additional Lab and Data: Microbiology and Other Data: Microbiology 02/13/18 20:55 Nasal Screen MRSA (PCR)(MELBA) - Final Nasal Mrsa Not Detected Assess/Plan/Problems-Billing Assessment: Ms. Cuba is an 82 yo female with PMH significant for a right lung mass who presented to the emergency room after a mechanical fall and was found to have bilateral SDH and SAH. - Patient Problems (1) SDH (subdural hematoma) Code(s): I62.00 - NONTRAUMATIC SUBDURAL HEMORRHAGE, UNSPECIFIED SNOMED Code(s) : 27865945 Comment: - Bilateral SDH and SAH - Repeat CT scan shows improvement - Neurosurgery consult, input appreciated (2) Left wrist fracture Code(s): S62.102A - FRACTURE OF UNSP CARPAL BONE, LEFT WRIST, INIT FOR CLOS FX SNOMED Code(s): 890217197 Comment: - Continue splint - Orthopedics follow-up outpatient (3) Tumor of lung Code(s): D49.1 - NEOPLASM OF UNSPECIFIED BEHAVIOR OF RESPIRATORY SYSTEM SNOMED Code(s): 501644317 Comment: - Left lung - Will attempt to get records from Dr. Booker's office (4) DVT prophylaxis Code(s): CLP0054 - SNOMED Code(s): 573148519 Comment: - SCDs - No chemical DVT prophylaxis in the setting of SDH and SAH (5) DNR (do not resuscitate) Status and Disposition: Inpatient. Stable for discharge to home today.
--- NOTE | 2018-02-16 03:59 | DS ---
CC: Dr. Sasha De La Vega; Dr. Go Vinson * DISCHARGE SUMMARY: DATE OF ADMISSION: 02/13/18 DATE OF DISCHARGE: 02/15/18 ATTENDING PHYSICIAN: Dr. Kaylee Jones * (dictated by Valente Rosen NP). PRIMARY CARE PROVIDER: Dr. Sasha De La Vega. PRIMARY DIAGNOSES: 1. Bilateral subdural hematomas and subarachnoid hematomas. 2. Left wrist fracture. SECONDARY DIAGNOSES: 1. History of lung mass. 2. History of small bowel obstruction. CONSULTATIONS DURING THE HOSPITAL: Dr. Go Vinson with Neurosurgery. STUDIES WHILE IN THE HOSPITAL: Cervical spine CT on 02/13/18. Radiologist's impression: Osteopenia. Degenerative disk disease and osteoarthritis. Emphysema. No acute osseous injury to the cervical spine. Brain CT on 02/14/18, radiologist's impression: Bilateral subdural hematoma has improved, subarachnoid hemorrhage also improved. DISCHARGE MEDICATIONS: New home medication: Acetaminophen 500 to 650 mg oral every 4 to 6 hours as needed for pain. Continued home medications: Multivitamin 1 tablet oral daily. HISTORY OF PRESENT ILLNESS/HOSPITAL COURSE: Ms. Cuba is an 82-year-old female with no significant past medical history who was in her usual state of health when she was out walking at her senior housing complex. She just finished her walk and was returning to her room when she unfortunately stepped on some wet grass, lost her balance, slipped, fell landing on her face and left side. She denied any loss of consciousness. After her fall, she noticed some left-sided chest tenderness. She was encouraged to get evaluated. Initially, the patient was evaluated at the Urgent Care where she underwent a brain CT showing bilateral subdural and subarachnoid hemorrhages. Additionally, she had a left wrist x-ray showing a likely nondisplaced fracture of the distal radius and ulnar styloid process without definitive angulation. She had a maxillofacial CT showing no facial fractures, bilateral subdural hematomas, diffuse osteopenia and degenerative changes. Due to the findings at Urgent Care, she was sent to the emergency room for further evaluation. While in the emergency room, the patient had a cervical spine CT showing no acute findings. She had labs that were unremarkable. She had a negative urinalysis. Dr. Vinson from Neurosurgery was consulted. He recommended admission with observation in the intensive care unit overnight. The Hospitalists were asked to evaluate the patient for admission. Her left forearm was placed in a splint by the Emergency Room. While in the hospital, the patient was initially monitored in the intensive care unit with frequent neuro checks. She had a repeat head CT on 02/14/18 showing improvement in her bilateral subdural hematomas and subarachnoid hemorrhage. The patient was seen by Physical Therapy and able to ambulate independently with a walker. The patient was doing well and it was felt that she could go home with followup with Neurosurgery outpatient. Ms. Cuba is stable for discharge to home today. Vitals signs are as follows: Temperature 97.7, heart rate 71, respiratory rate 16, O2 sat 99% on room air, blood pressure 119/68. DISCHARGE PLAN: Ms. Cuba will be discharged to home. ACTIVITY: As tolerated. She has been asked to be nonweightbearing to her left extremity. In regards to her subdural hematomas and subarachnoid hemorrhage, these have improved. She should call Dr. Dr. Vinson's office for a followup appointment in the next 7 to 10 days. The patient's family has also been asked to call Dr. De La Vega's office to set up a followup appointment in the next week. Additionally, they have been provided with the phone number for [facility] to call on Friday to set up a followup appointment regarding her left wrist fracture. She has been asked to keep the splint on her left wrist clean, dry and intact. She is instructed that she could use acetaminophen 500 to 650 mg oral every 4 to 6 hours as needed for pain and to avoid medications such as aspirin and ibuprofen. She will resume on her normal home medications. She has been asked to return to the emergency room for any shortness of breath, chest discomfort or changes in neurological status such as visual changes, difficulty with balance, facial drooping or one-sided weakness. This is a summarized report of a complex medical history and hospital stay. For further details, please see the entire medical record. TIME SPENT: Time for this discharge was approximately 50 minutes, greater than half of that was spent with the patient and family discussing discharge plans and instructions. CONDITION ON DISCHARGE: Improved. VALENTE ROSEN, ABELINO [id number]/[facility] #: [id number] FAISAL
== END 2018-02-15 14:05 | disposition home or self-care (01) | DRG 86 ==
LOC: ED 12:38 → ICU 15:30 → SSU 02-14 11:59
PROVIDERS: ADMIT Internal Medicine Critical Care Medicine; ATTEND Internal Medicine
DX: S06.5X0A Traumatic subdural hemorrhage without loss of consciousness, initial encounter (principal); S52.502A Unspecified fracture of the lower end of left radius, initial encounter for closed fracture; S52.615A Nondisplaced fracture of left ulna styloid process, initial encounter for closed fracture; W01.0XXA Fall on same level from slipping, tripping and stumbling without subsequent striking against object, initial encounter; Y93.01 Activity, walking, marching and hiking; F17.210 Nicotine dependence, cigarettes, uncomplicated; J44.9 Chronic obstructive pulmonary disease, unspecified; S06.6X0A Traumatic subarachnoid hemorrhage without loss of consciousness, initial encounter; M85.88 Other specified disorders of bone density and structure, other site; M47.9 Spondylosis, unspecified; M50.30 Other cervical disc degeneration, unspecified cervical region; S00.83XA Contusion of other part of head, initial encounter; Z66 Do not resuscitate; D49.1 Neoplasm of unspecified behavior of respiratory system; Z96.642 Presence of left artificial hip joint; Y92.038 Other place in apartment as the place of occurrence of the external cause; Z88.5 Allergy status to narcotic agent; Z88.0 Allergy status to penicillin; Z83.3 Family history of diabetes mellitus; Z82.49 Family history of ischemic heart disease and other diseases of the circulatory system; Z80.9 Family history of malignant neoplasm, unspecified
CPT/HCPCS: 36415; 70450; 70486; 71046; 72125; 80048; 80053; 81003; 85025; 85610; 85730; 87086; 87641; 93005; 99213; 99284; A9270-GY; G0463; G8978-GP-CI; G8979-GP-CI